=== PATIENT | male | born 1955 | race Hispanic/Latino ===

== ENCOUNTER 2020-08-12 06:33 | Day surgery (SDC) | payer OTHER ==
[2020-08-08 14:33] LABS: Absolute Lymphocytes (CBC) 2.3 K/uL (0.7-4.9); Basophils % 0.6 % (0-1.3); Hematocrit 47.5 % (39.6-49.0); Lymphocytes % 32.2 % (15.3-44.8); MPV 9.8 fL (7.6-11.3); RBC Red Blood Cell Count 5.12 M/uL (4.33-5.43)
[2020-08-08 14:43] LABS: Protime INR 0.99
--- NOTE | 2020-08-08 14:45 | RAD REPORT ---
EXAM DESCRIPTION: RAD - Chest Pa And Lat (2 Views) - 08/08/2020 2:21 pm CLINICAL HISTORY: preop Chest pain. COMPARISON: No comparisons FINDINGS: Elevated right hemidiaphragmatic leaflet is seen. The lungs are grossly clear. The heart i s normal in size. No displaced fractures.
[2020-08-08 14:49] LABS: Potassium 4.9 mmol/L (3.5-5.1)
--- OUTSIDE RECORDS SUMMARY | 2020-08-12 06:35 | XMS REPORT | Summary of Care ---
:1955 Author Organization [facility] Address [address] [place] [address] Care Team Providers Name Role Phone Gonzalo Esequiel Lilly Primary Care Provider Reason for Visit Reason Comments LAB WORK Encounter Details Date Type Department Care Team Description 06/07/2020 Telephone [facility] Endocrinology- Johny Lockhart MD LAB WORK [address] [address] [address] [place] [address] [place] [address] [phone] Allergies No Known Allergiesdocumented as of this encounter (statuses as of 06/10/2020) Medications Medication Sig Dispensed Refills Start Date End Date Status MH-2-LNC-DHA-FISH Take by 0 Ac tive OIL-FLAX-E ORAL mouth. sitaGLIPtin Take 1 tablet 90 tablet 1 12/23/2017 Act russell (JANUVIA) 100 mg by mouth tablet daily. lisinopril 20 mg Take 1 tablet 90 tablet 1 07/24/2019 Active tabletIndications: by mouth Type 2 diabetes daily. mellitus without complication, without long-term current use of insulin lancets (ONE TOUCH Use as 100 Each 07/24/2019 Active DELICA) 33 gauge directed, MiscIndications: DX:E11.9, Type 2 diabetes daily mellitus without complication, without long-term current use of insulin metFORMIN 1,000 mg TAKE 1 TABLET 180 tablet 1 07/24/2019 Active tabletIndications: BY MOUTH 2 Type 2 diabetes (TWO) TIMES mellitus without DAILY WITH complication, MEALS. without long-term current use of insulin liothyronine 5 mcg Take 1 tablet 90 tablet 1 07/24/2019 Active tabletIndications: by mouth Primary daily. hypothyroidism blood sugar USE 100 Strip 1 01/22/2020 Active diagnostic DIRECTED, (ONETOUCH VERIO) DAILY, stripIndications: DX:E11.9 Type 2 diabetes mellitus without complication, without long-term current use of insulin levothyroxine 125 TAKE 1 TABLET 90 tablet 0 05/03/2020 Active mcg BY MOUTH tabletIndications: EVERY DAY IN Primary THE MORNING hypothyroidism testosterone 20.25 APPLY 1 PUMP 75 g 0 06/07/2020 Active mg/1.25 gram (1.62 TO SHOULDER %) gel EVERY OTHER pumpIndications: DAY Male hypogonadism TESTOSTERONE 20.25 APPLY 1 PUMP 75 g 1 11/27/2019 0 Discontinued mg/1.25 gram (1.62 TO SHOULDER 20 (Reorder) %) gel EVERY OTHER pumpIndications: DAY Male hypogonadism testosterone 20.25 APPLY 1 PUMP 75 g 0 06/07/2020 0 Discontinued mg/1.25 gram (1.62 TO SHOULDER 20 (Reorder) %) gel EVERY OTHER pumpIndications: DAY Male hypogonadism documented as of this encounter (statuses as of 06/10/2020) Active Problems Not on filedocumented as of this encounter (statuses as of 06/10/2020) Immunizations Name Administration Dates Next Due TDAP 10/31/2018 documented as of this encounter Social History Tobacco Use Types Packs/Day Years Used Date Never Smoker Smokeless Tobacco: Never Used Alcohol Use Drinks/Week oz/Week Comments Yes Rare Sex Assigned at Date Recorded Not on file documented as of this encounter Last Filed Vital Signs Not on filedocumented in this encounter Miscellaneous Notes Telephone Encounter - Alka Duff - 06/10/2020 3:46 PM CDTPatient states he is having lab from his PCP and will have them sent to Dr. Pablo elephone Encounter - Carolin Mckeon LVN - 06/07/2020 2:58 PM CDTPlease assist patient with scheduling (am) lab appointment Fred Baigectronically signed by Carolin Mckeon LVN at 06/07/2020 2:59 PM CDTTelephone Encounter - Amanda Meadows - 06/07/2020 2:13 PM CDTPatient was called and a voice message was left for him to call back to schedule a lab appointment. elephone Encounter - Lolis Yates RN - 06/07/2020 9:24 AM CDT Prescription faxed to pharmacy. elephone Encounter - Arthur Villegas MBBS - 06/07/2020 9:09 AM CDTRefill for the testosterone will be faxed. Please call patient to get labs in 3-4 Weeks. Last labs more than 1 yr ago. Arthur Leo MD PGY-4 Endocrinology Fellow Telephone Encounter - Lolis Yates RN - 06/07/2020 6:54 AM CDTPlease advise, NOV: none SOLEDAD: 01/22/20 Requesting refill on TESTOSTERONE 20.25 mg/1.25 gram (1.62 %) gel pump be sent to [facility] in [place], [place]. Last testosterone lab done 03/13/19. Please send prescription if appropriate. Routing to [facility] to schedule follow up. documented in this encounter Plan of Treatment Name Type Priority Associated Diagnoses Order S chedule TESTOSTERONE, FREE AND LAB Routine Male hypogonadism Expected: TOTAL 06/27/2020, Exp ires: 06/07/2021 FREE T3 LAB Routine Primary hypothyroidism Expec sharron: 06/07/2020, Exp ires: 06/07/2021 T4 FREE LAB Routine Primary hypothyroidism Expec sharron: 06/07/2020, Exp ires: 06/07/2021 THYROID STIMULATING LAB Routine Primary hypothyroidis m Expected: HORMONE 06/07/2020, Exp ires: 06/07/2021 LIPID PANEL ([id number])(TOTAL LAB Routine Type 2 diabetes mellitus Expected: CHOLESTEROL, without complication, 2019, Expires: TRIGLYCERIDES, HDL) without long-term cur rent 06/07/2021 use of insulin COMP. METABOLIC PANEL LAB Routine Benign hypertension Expected: ([id number]) 06/07/2020, Exp ires: 06/07/2021 GLYCOSYLATED HEMOGLOBIN LAB Routine Type 2 diabetes m jose Expected: (A1C) without complication, 2019, Expires: without long-term current use of insulin Health Maintenance Due Date Last Done Comments HEPATITIS C (HCV) SCREEN 1955 PNEUMOCOCCAL 0-64 YEARS COMBINED 1961 SERIES (1 of 1 - PPSV23) Depression Screening 1967 COLON CANCER SCREENING ANNUAL 2005 FIT/FOBT COLON CANCER SCREENING FIT DNA 2005 EVERY 3 YEARS COLON CANCER SCREENING 2005 SIGMOIDOSCOPY EVERY 5 YEARS COLONOSCOPY 2005 Colorectal Cancer Screening 2005 Zoster Recombinant Vaccine 2005 (SHINGRIX) (1 of 2) EYE EXAM 06/29/2017 06/29/2016 URINE MICROALBUMIN 09/03/2018 09/03/2017, 06/29/2016 HgA1C 01/22/2020 07/24/2019, 03/13/2019, 10/10/2018, Additional history exists CREATININE (SERUM) 03/13/2020 03/13/2019, 06/20/2018, 09/03/2017, Additional history exists LDL-C 03/13/2020 03/13/2019, 06/20/2018, 10/24/2015 INFLUENZA VACCINE (#1) 2020 FOOT EXAM 01/21/2021 01/22/2020, 01/22/2020, 07/24/2019, Additional history exists DTaP,Tdap,and Td Vaccines (2 - Td) 10/31/2028 10/31/2018 documented as of this encounter Results Not on filedocumented in this encounter Visit Diagnoses Diagnosis Male hypogonadism - Primary Other testicular hypofunction Primary hypothyroidism Unspecified hypothyroidism Type 2 diabetes mellitus without complic ation, without long-term current use of insulin Benign hypertension Essential hypertension, benign documented in this encounter Insurance Payer Benefit Plan / Group Subscriber ID Effective Dates Phone Address Type AETNA AETNA HMO [id number] 2015-Present HM O documented as of this encounter
--- OUTSIDE RECORDS SUMMARY | 2020-08-12 06:35 | XMS REPORT | Summary of Care ---
:1955 Author Organization [facility] Address [address] [place] [address] Care Team Providers Name Role Phone Deisydalton Esequiel Vijaya Primary Care Provider Reason for Visit Reason Comments Refill Request Encounter Details Date Type Department Care Team Description 07/27/2020 Refill [facility] Endocrinology- Johny Lockhart MD Refill Request [address] [place] [address] [address] [place] [phone] Allergies No Known Allergiesdocumented as of this encounter (statuses as of 07/27/2020) Medications Medication Sig Dispensed Refills Start Date End Date Status PY-9-VQH-DHA-FISH Take by mouth. 0 Active OIL-FLAX-E ORAL sitaGLIPtin (JANUVIA) Take 1 tablet by 90 tablet 1 12/23/2017 Active 100 mg tablet mouth daily. lisinopril 20 mg Take 1 tablet by 90 tablet 1 07/24/2019 Active tabletIndications: Type mouth daily. 2 diabetes mellitus without complication, without long-term current use of insulin lancets (ONE TOUCH Use as directed, 100 Each 1 07/24/2019 Active DELICA) 33 gauge DX:E11.9, daily MiscIndications: Type 2 diabetes mellitus without complication, without long-term current use of insulin metFORMIN 1,000 mg TAKE 1 TABLET BY 180 tablet 1 07/24/2019 Active tabletIndications: Type MOUTH 2 (TWO) 2 diabetes mellitus TIMES DAILY WITH without complication, MEALS. without long-term current use of insulin liothyronine 5 mcg Take 1 tablet by 90 tablet 1 07/24/2019 Active tabletIndications: mouth daily. Primary hypothyroidism blood sugar diagnostic USE DIRECTED, 100 Strip 1 01/22/2020 Active (ONETOUCH VERIO) DAILY, DX:E11.9 stripIndications: Type 2 diabetes mellitus without complication, without long-term current use of insulin levothyroxine 125 mcg TAKE 1 TABLET BY 90 tablet 0 05/03/2020 Active tabletIndications: MOUTH EVERY DAY Primary hypothyroidism IN THE MORNING testosterone 20.25 APPLY 1 PUMP TO 75 g 0 06/07/2020 Active mg/1.25 gram (1.62 %) SHOULDER EVERY gel pumpIndications: OTHER DAY Male hypogonadism documented as of this encounter (statuses as of 07/27/2020) Active Problems Not on filedocumented as of this encounter (statuses as of 07/27/2020) Immunizations Name Administration Dates Next Due TDAP 10/31/2018 documented as of this encounter Social History Tobacco Use Types Packs/Day Years Used Date Never Smoker Smokeless Tobacco: Never Used Alcohol Use Drinks/Week oz/Week Comments Yes Rare Sex Assigned at Date Recorded Not on file documented as of this encounter Last Filed Vital Signs Not on filedocumented in this encounter Miscellaneous Notes Telephone Encounter - Shakira Alvarado - 07/27/2020 4:45 PM CDTCalled patient to schedule appts patient states he had labs done at his PCP office and will have them faxed to Dr. Sagastume. He did schedule an appointment for 08/[address] Sagastume Telephone Encounter - Pearl Pelayo DO - 07/27/2020 4:08 PM CDTNeed lab work prior. Hasn't had labs in a year. Also on liothyronine. elephone Encounter - Pearl Pelayo DO - 07/27/2020 4:00 PM CDTNo recent lab work. Also patient needs to make an apmt the next available with dr sagastume as soon as available. I tried to call patient no answer Is patient also on liothyronine? Telephone Encounter - Lolis Yates RN - 07/27/2020 3:15 PM CDTPvictoria hannah, NOV: none SOLEDAD: 01/22/20 Requesting refill on Levothyroxine. Last thyroid labs done 03/13/19. Routing to [facility] to schedule follow up and lab appointment. documented in this encounter Plan of Treatment Date Type Specialty Care Team Description 08/26/2020 Office Visit Endocrinology Diabetes & Clifford y, Johny Mares MD Metabolism [address] [place] [address] [phone] Health Maintenance Due Date Last Done Comments HEPATITIS C (HCV) SCREEN 1955 Depression Screening 1967 COLON CANCER SCREENING ANNUAL [...] 03/13/2019, 06/20/2018, 10/24/2015 INFLUENZA VACCINE (#1) 2020 Medicare Wellness Visit 2020 PNEUMOCOCCAL VACCINES 65+ (1 of 1 2020 - PPSV23) FOOT EXAM 01/21/2021 01/22/2020, 01/22/2020, 07/24/2019, Additional history exists DTaP,Tdap,and Td Vaccines (2 - Td) 10/31/2028 10/31/2018 documented as of this encounter Results Not on filedocumented in this encounter Visit Diagnoses Diagnosis Primary hypothyroidism Unspecified hypothyroidism documented in this encounter Insurance Payer Benefit Plan / Group Subscriber ID Effective Dates Phone Address Type AETNA AETNA O [id number] 2015-Present O documented as of this encounter
--- OUTSIDE RECORDS SUMMARY | 2020-08-12 06:35 | XMS REPORT | Continuity of Care Document ---
:1955 Author Organization [facility] t Address [address] [place] [address] Care Team Providers Name Role Phone Montez HILLMAN, Tyshawn Primary Care Physician Tanika HILLMAN, Johny Mares Attending Clinician Rommel Underwood MD, Bonilla Attending Clinician Payers Payer Name Policy Type Policy Effective Date Expiration Date Sour ce Number MEDICAREMEDICARE PART [id number] 2020 [place] Wtaers AND 00:00:00 Confucianist [id number] [place] [place] This patient has no known problems. Allergies, Adverse Reactions, Alerts This patient has no known allergies or adverse reactions. Social History Social Habit Start Date Stop Date Quantity Comments Source Sex Assigned At M Ashley Zapien Exposure to SARS-CoV-2 Not sure [place] Zapien (event) Medications This patient has no known medications. Procedures Procedure Date / Time Performed Performing Clinician Sourc e XR THORACIC SPINE 2 VW 2020-05-26 13:42:44 Garth Banks Bonilla XR CERVICAL SPINE 2020-05-26 13:42:05 Garth Banks COMPLETE Bonilla Plan of Care Planned Activity Planned Date Details Comments Source Future Scheduled 2020 65+ PNEUMOCOCCAL Justo Zapien Test 00:00:00 VACCINE (1 of 1 - PPSV23) [code = 65+ PNEUMOCOCCAL VACCINE (1 of 1 - PPSV23)] Future Scheduled 2020-06-04 INFLUENZA VACCINE [place] Confucianist Test 00:00:00 [code = INFLUENZA VACCINE] Future Scheduled 2005 COLONOSCOPY SCREENING [place] smith Confucianist Test 00:00:00 [code = COLONOSCOPY SCREENING] Future Scheduled 2005 SHINGLES VACCINES (#1) Suzan martin Confucianist Test 00:00:00 [code = SHINGLES VACCINES (#1)] Encounters Start End Encounter Admission Attending Care Care Encounter Source Date/Time Date/Time Type Type Clinicians Facility Department ID 2020-07-27 2020-07-27 [facility] [id number] 00:00:00 00:00:00 Johny Galindo [id number] [place] [id number] Angieio [id number] [address] 2020-05-26 2020-05-26 Outpatient [facility] [id number] [address] 00:00:00 00:00:00 MARCOS, [address] 2020-05-26 2020-05-26 Outpatient [facility] [id number] 00:00:00 00:00:00 MARCOS, [address] 2020-05-26 2020-05-26 Outpatient [facility] [id number] [address] 00:00:00 00:00:00 MARCOS [address] 2020-05-26 2020-05-26 Outpatient [facility] [id number] [address] 00:00:00 00:00:00 MARCOS [address] Results This patient has no known results.
--- OUTSIDE RECORDS SUMMARY | 2020-08-12 06:35 | XMS REPORT | Summary of Care ---
:1955 Author Organization [facility] Address [address] [place] [address] Care Team Providers Name Role Phone Deisydalton Esequiel Vijaya Primary Care Provider Reason for Visit Reason Comments Refill Request Encounter Details Date Type Department Care Team Description 07/27/2020 Refill [facility] Endocrinology- Johny Lockhart MD Refill Request [place] [address] [address] [place] [address] [phone] Allergies No Known Allergiesdocumented as of this encounter (statuses as of 07/27/2020) Medications Medication Sig Dispensed Refills Start Date End Date Status NR-0-WNW-DHA-FISH Take by mouth. 0 Active OIL-FLAX-E ORAL [...] this encounter Miscellaneous Notes Telephone Encounter - Pearl Pelayo DO - 07/27/2020 4:08 PM CDTNeed lab work prior. Hasn't had labs in a year. Also on liothyronine. elephone Encounter - Pearl Pelayo DO - 07/27/2020 4:00 PM CDTNo recent lab work. Also patient needs to make an apmt the next available with dr weems as soon as available. I tried to call patient no answer Is patient also on liothyronine? Telephone Encounter - Lolis Yates RN - 07/27/2020 3:15 PM CDTPlease advise, NOV: none SOLEDAD: 01/22/20 Requesting refill on Levothyroxine. Last thyroid labs done 03/13/19. Routing to [facility] to schedule follow up and lab appointment. documented in this encounter Plan of Treatment Health Maintenance Due Date Last Done Comments [...] Dates Phone Address Type AETNA AETNA HMO [id number] 2015-Present HM O documented as of this encounter
--- OUTSIDE RECORDS SUMMARY | 2020-08-12 06:35 | XMS REPORT | Clinical Summary ---
:1955 Author Organization [facility] Address [address] [place] [address] Care Team Providers Name Role Phone Tyshawn Herrmann MD Primary Care Provider Allergies Not on File Medications Not on file Active Problems Not on file Encounters Date Type Specialty Care Team Description 07/19/2020 Travel 05/30/2020 Orders Only Orthopedic Surgery Garth Banks Cerv ical pain (Primary Dx); MD Bonilla Acute thoracic back pain, unspecified back pain laterality 05/26/2020 Office Visit Orthopedic Surgery Garth Banks Uppe r back pain (Primary Dx); MD Bonilla Low back pain, unspecified back pain laterality, unspecified chronicity, unspecified whether sciatica present; Neck pain 05/26/2020 Travel 05/23/2020 Travel after 08/12/2019 Social History Tobacco Use Types Packs/Day Years Used Date Never Assessed Sex Assigned at Date Recorded Male 05/26/2020 9:00 AM CDT COVID-19 Exposure Response Date Recorded In the last month, have you been in contact with No / Unsure 07/19/2020 9:05 AM CDT someone who was confirmed or suspected to have Coronavirus / COVID-19? Last Filed Vital Signs Not on file Plan of Treatment Health Maintenance Due Date Last Done Comments COLONOSCOPY SCREENING 2005 SHINGLES VACCINES (#1) 2005 INFLUENZA VACCINE 06/04/2020 65+ PNEUMOCOCCAL VACCINE (1 of 1 - PPSV23) 2020 Procedures Procedure Name Priority Date/Time Associated Diagnosis Comme nts XR THORACIC SPINE 2 Routine 05/26/2020 1:42 PM Upper back conrad n Results for this VW CDT procedure are i n the results section. XR CERVICAL SPINE Routine 05/26/2020 1:42 PM Neck pain Res ults for this COMPLETE CDT procedure are i n the results section. after 08/12/2019 Results XR Thoracic Spine 2 Vw (05/26/2020 1:42 PM CDT) Specimen Narrative Performed At This result has an attachment that is no t available. Cervical spine multiple views. HM RADIANT C3-4 retrolisthesis minimally mobile to flexion-extens ion maneuvers No advanced disc degeneration or disc space collapse n oted. No fractures or bony erosions. Performing Organization Address [facility] Phon e Number HM RADIANT [address] [place] [address] XR Cervical Spine Complete (05/26/2020 1:42 PM CDT) Specimen Narrative Performed At This result has an attachment that is no t available. X-ray cervical spine multiple views, C3-4 2 mm retrolisthesis minimally HM RADIANT mobile on dynamic x-rays No fracture bone erosions No significant disc degeneration and disc space collap se. 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
[2020-08-12] MEDS ORDERED: LIDOCAINE 1% 20 ML MDV ONE (06:48)
[2020-08-12] MEDS ORDERED: HEPA 1000U/500MLS 1,000 UNIT/500 ML BAG IV ONE (06:48)
[2020-08-12] MEDS ORDERED: NA CHLORIDE 0.9% 500 ML ONE (07:01)
[2020-08-12] MEDS ORDERED: MIDAZOLAM HCL 2 MG/2 ML INJ ONE ×2 (07:19→07:48)
[2020-08-12] MEDS ORDERED: FENTANYL CITR 100 MCG/2 ML ONE (07:19)
--- NOTE | 2020-08-12 08:24 | OP ---
Date of Procedure: 08/12/2020 Surgeon: Loc Carrasquillo MD Straight Knife Cutter Machine: Sheldon James Patient admitted as an outpatient on 08/12/2020, to the laboratory manager as an outpatient. Reason For Admission: Selective bilateral carotid angiogram. Indication: Syncope and collapse and positive carotid Doppler. Procedure In Detail: The patient was brought to the laboratory manager, prepped and draped in the routine ster ile fashion. Given Versed for sedation. A 6-Belizean sheath introduced in the right common femoral ar boone successfully after 10 cc of xylocaine and using the Seldinger technique. Angiography there was normal. Angio-Seal was used to close the case. A JR4 catheter was used to selectively inject the ri ght common carotid and the left common carotid. He was found to have normal bilateral common carotid artery. He had moderate stenosis in the bilateral external carotid arteries. The left internal car otid had a 30% stenosis that was tortuous. The right internal carotid artery had an 80% proximal int ernal carotid artery stenosis and that was tortuous as well. 6-Belizean catheters and sheath were used . No complications. Blood Loss: 5 cc. Postoperative Diagnosis: Cardiovascular disease, severe, right internal carotid artery stenosis. Plan: For the right carotid endarterectomy as an outpatient in the [place]. Patient will remain in the hospital now for about 2 hours before he goes home. I will make arrangements for followup as an outpatient in the near future. Anesthesia: Total conscious sedation was 30 minutes. TERESA/KM Voice ID: [id number] Report ID: [id number]
[2020-08-12 08:30] VITALS: O2SAT 97
[2020-08-12 08:34] VITALS: TEMP 97
[2020-08-12 10:31] VITALS: BP 147/102
== END 2020-08-12 10:11 | disposition home or self-care (01) ==
LOC: CCL 06:33
DX: I65.23 Occlusion and stenosis of bilateral carotid arteries (principal); I10 Essential (primary) hypertension; E11.9 Type 2 diabetes mellitus without complications; Z20.828 Contact with and (suspected) exposure to other viral communicable diseases
CPT/HCPCS: 93005; 85025; 80048; 36415; 85610; 82947; 85730; 71046; 36222; U0002; C1893; C1760; J2250 ×2; J3010; J7040; J1644

== ENCOUNTER 2020-08-27 15:45 | Emergency (ER) | payer OTHER ==
--- OUTSIDE RECORDS SUMMARY | 2020-08-27 15:47 | XMS REPORT | Clinical Summary ---
:1955 Author Organization [facility] Address [address] [place] [address] Care Team Providers Name Role Phone Tyshawn [...] Neck pain 05/26/2020 Travel 05/23/2020 Travel after 08/27/2019 Social History Tobacco Use Types Packs/Day Years Used Date Never Assessed Sex Assigned at Date Recorded Male 05/26/2020 9:00 AM CDT Last Filed Vital Signs Not on file [...] are i n the results section. after 08/27/2019 Results XR Thoracic Spine 2 Vw (05/26/2020 1:42 PM CDT) Specimen Narrative Performed At This result has an attachment that is no t available. Cervical spine multiple views. HM RADIANT C3-4 retrolisthesis minimally mobile to flexion-extens ion maneuvers No advanced disc degeneration or disc space collapse n oted. No fractures or bony erosions. Performing Organization Address [facility] Code Phon e Number HM RADIANT [address] [place] [address] XR Cervical Spine Complete (05/26/2020 1:42 PM CDT) Specimen Narrative Performed At This result has an attachment that is no t available. X-ray cervical spine multiple views, C3-4 2 mm retrolisthesis minimally HM RADIANT mobile on dynamic x-rays No fracture bone erosions No significant disc degeneration and disc space collap se. 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
--- OUTSIDE RECORDS SUMMARY | 2020-08-27 15:48 | XMS REPORT | Summary of Care ---
:1955 Author Organization [facility] Address [address] [place] [address] Care Team Providers Name Role Phone Deisydalton Esequiel Vijaay Primary Care Provider Reason for Visit Reason Comments Refill Request Encounter Details Date Type Department Care Team Description 07/27/2020 Refill [facility] Endocrinology- Johny Lockhart MD Refill Request [place] [address] [address] [place] [phone] Allergies No Known Allergiesdocumented as of this encounter (statuses as of 07/27/2020) Medications Medication Sig Dispensed Refills Start Date End Date Status QX-6-NFW-DHA-FISH Take by mouth. 0 Active OIL-FLAX-E ORAL [...] Dates Phone Address Type AETNA AETNA HMO [id number] 2015-Present HM O documented as of this encounter
--- OUTSIDE RECORDS SUMMARY | 2020-08-27 15:48 | XMS REPORT | Summary of Care ---
:1955 Author Organization [facility] Address [address] [place] [id number] Care Team Providers Name Role Phone Gonzalo Esequiel Lilly Primary Care Provider Reason for Visit Reason Comments LAB WORK Encounter Details Date Type Department Care Team Description 06/07/2020 Telephone [facility] Endocrinology- Johny Lockhart MD LAB WORK [address] [address] [address] [place] [address] [place] [address] [phone] Allergies No Known Allergiesdocumented as of this encounter (statuses as of 06/10/2020) Medications Medication Sig Dispensed Refills Start Date End Date Status [id number] Take by 0 Ac tive OIL-FLAX-E ORAL [...] (1.62 %) gel pump be sent to [facility] in [place], [place]. Last testosterone lab done 03/13/19. Please [...] HORMONE 06/07/2020, Exp ires: 06/07/2021 LIPID PANEL (73149)(TOTAL LAB Routine Type 2 diabetes mellitus Expected: CHOLESTEROL, without complication, 2019, Expires: TRIGLYCERIDES, HDL) without long-term cur rent 06/07/2021 use of insulin COMP. METABOLIC PANEL LAB Routine Benign hypertension Expected: ([id number]) 06/07/2020, Exp ires: 06/07/2021 GLYCOSYLATED HEMOGLOBIN LAB [...] Dates Phone Address Type [employer]ET[employer] AETNA HMO [phone] 2015-Present HM O documented as of this encounter
--- OUTSIDE RECORDS SUMMARY | 2020-08-27 15:48 | XMS REPORT | Clinical Summary ---
:1955 Author Organization [facility] Address [address] [place] [address] Care Team Providers Name Role Phone Tyshawn Herrmann Primary Care Provider Allergies No Known Allergies Medications Medication Sig Dispensed Refills Start End Date Status Date atorvastatin Take 40 mg by 0 Act russell (LIPITOR) 40 MG mouth daily. 0 tablet cholecalciferol Take 5,000 0 Act russell (VITAMIN D3) 25 mcg Units by mouth (1,000 unit) tablet daily . levothyroxine Take 125 mcg 0 Act russell (SYNTHROID, by mouth 0 LEVOTHROID) 125 MCG daily. tablet olmesartan (BENICAR) Take 40 mg by 0 Active 40 MG tablet mouth daily. 0 metFORMIN Take 1,000 mg 0 Active (GLUCOPHAGE) 1000 MG by mouth 2 0 tablet (two) times daily with breakfast and dinner. testosterone 20.25 APPLY 1 PUMP 0 Active mg/1.25 gram (1.62 TO SHOULDER 0 %) GlPm EVERY OTHER DAY ascorbic acid, Take 1,000 mg 0 A ctive vitamin C, (VITAMIN by mouth C) 1000 MG tablet daily. vitamin E 400 UNIT Take 400 Units 0 Active capsule by mouth daily. MAGNESIUM ORAL Take by mouth 0 A ctive daily. clopidogreL (PLAVIX) Take 75 mg by 0 Active 75 mg tablet mouth daily 0 Took 150mg ..20. BABY ASPIRIN ORAL Take 81 mg by 0 Active mouth daily. OMEGA-3 FATTY Take 1 capsule 0 A ctive ACIDS-FISH OIL ORAL by mouth 2 (two) times daily. omega-3 fatty Take 2 g by 0 08/22/20 Disc ontinued acids-fish oil mouth 2 (two) 20 ( Duplicate 340-1,000 mg Cap per times daily. Therapy) capsule Active Problems Problem Noted Date Carotid stenosis, right 08/24/2020 Dissection of left common iliac artery 08/24/2020 Primary squamous cell carcinoma of head and neck 08/21 History of lymph node excision 08/21/2020 DM2 (diabetes mellitus, type 2) 08/21/2020 Radiation therapy complication 08/21/2020 Carotid artery stenosis, symptomatic, right s/p 10x31 Wallstent 08/24/2020 08/21/2020 PVD (peripheral vascular disease) 08/21/2020 Orthostatic hypotension 08/21/2020 Encounters Date Type Specialty Care Team Description 08/26/2020 Outside Orders Central Scheduling Kelsie Ríos MD (Primary Dx) 08/24/2020 Surgery Sonal, STENT / CAROTID [facility] Doron Stanford, - IP PROC ONLY* * 08/24/2020 - Hospital Encounter Sonal, 08/26/2020 Doron Stanford MD 08/22/2020 Hospital Encounter Radiology Sonal, Stenosis of carotid Doron Stanford artery, unspeccristo may MD laterality 08/22/2020 Hospital Encounter Radiology Sonal, Stenosis of carotid Doron Stanford artery, unspeci yadira HILLMAN laterality 08/22/2020 Clinical Support Cardiology Sonal, Pre-op test MD Lebron Zuniga Taiwo, RN 08/22/2020 Travel 08/18/2020 Outside Orders Central Scheduling Sonal, Stenosi s of carotid Doron Stanford artery, sam may MD laterality (Imani allegra Dx) 08/16/2020 Office Visit Cardiology Aurelio, Stenosis of angélica Gaviria carotid artery MD Jayant (Primary Dx) 08/16/2020 Travel after 08/27/2019 Family History Medical History Relation Name Comments Stroke Father Cancer Mother bone cancer Relation Name Status Comments Father (Age 50) Mother Social History Tobacco Use Types Packs/Day Years Used Date Never Smoker Smokeless Tobacco: Never Used Alcohol Use Drinks/Week oz/Week Comments Yes rarely beer Alcohol Habits Answer Date Recorded How often do you have a drink containing alcohol? Never 08/16/2020 How many drinks containing alcohol do you have on a typical Not asked day when you are drinking? How often do you have six or more drinks on one occasion? No t asked Sex Assigned at Date Recorded Not on file COVID-19 Exposure Response Date Recorded In the last month, have you been in contact with No / Unsure 08/22/2020 12:44 PM CDT someone who was confirmed or suspected to have Coronavirus / COVID-19? Last Filed Vital Signs Vital Sign Reading Time Taken Comments Blood Pressure 106/67 08/26/2020 7:35 AM CDT Pulse 63 08/26/2020 7:35 AM CDT Temperature 36.8 C (98.2 F) 08/26/2020 7:35 AM CDT Respiratory Rate 18 08/26/2020 7:35 AM CDT Oxygen Saturation 98% 08/26/2020 7:35 AM CDT Inhaled Oxygen Concentration - - Weight 106.6 kg (235 lb) 08/25/2020 7:25 AM CDT Height 177.8 cm (5' 10") 08/24/2020 7:48 AM CDT Body Mass Index 33.72 08/24/2020 7:48 AM CDT Plan of Treatment Health Maintenance Due Date Last Done Comments COLON CANCER SCREENING COLONOSCOPY 1955 DIABETIC EYE EXAM 1965 DIABETIC FOOT EXAM 1965 URINE MICROALBUMIN 1965 LIPID PANEL 1990 INFLUENZA VACCINE (#1) 2020 Medicare IPPE (WELCOME TO MEDICARE) 07/05/2020 PNEUMOCOCCAL 65+ YRS (1 of 1 - [id number]) 2020 HEMOGLOBIN A1C 08/21/2020 Implants Implanted Type Area Activated Sludge Attendant Device Identifier Shelf Model / Expiration Serial / Date Lot Stent Rx Wstnt [id number] - [id number] IMPLANTS B [place] [id number] 03/08/2023 [id number] / Implanted: Qty: 1 on 08/24/2020 by Doron Diane MD at [facility] SCI:PERIPHERAL / INTERV [id number] Description:BRIANDA Procedures Procedure Name Priority Date/Time Associated Comments Diagnosis POCT-GLUCOSE METER Routine 08/26/2020 7:22 Resul ts for this AM CDT procedure are i n the results section. POCT-GLUCOSE METER Routine 08/25/2020 9:44 Resul ts for this PM CDT procedure are i n the results section. EEG AWAKE AND DROWSY Routine 08/25/2020 5:03 Res ults for this PM CDT procedure are i n the results section. POCT-GLUCOSE METER Routine 08/25/2020 3:19 Resul ts for this PM CDT procedure are i n the results section. PROTHROMBIN TIME/INR Routine 08/25/2020 10:27 Res ults for this AM CDT procedure are i n the results section. APTT Routine 08/25/2020 10:27 Results for this AM CDT procedure are i n the results section. POCT-GLUCOSE Routine 08/25/2020 10:15 Results for this AM CDT procedure are i n the results section. POCT-CALCIUM IONIZED Routine 08/25/2020 10:15 Res ults for this AM CDT procedure are i n the results section. POCT-HEMATOCRIT Routine 08/25/2020 10:15 Results for this AM CDT procedure are i n the results section. POCT-HEMOGLOBIN Routine 08/25/2020 10:15 Results for this AM CDT procedure are i n the results section. POCT-POTASSIUM Routine 08/25/2020 10:15 Results f or this AM CDT procedure are i n the results section. POCT-SODIUM Routine 08/25/2020 10:15 Results for this AM CDT procedure are i n the results section. POCT-BLOOD GASES, Routine 08/25/2020 10:15 Result s for this VENOUS AM CDT procedure are i n the results section. CT BRAIN/STROKE TEST STAT 08/25/2020 9:49 Res ults for this DESIGN AM CDT procedure are i n the results section. POCT-GLUCOSE METER Routine 08/25/2020 8:57 Resul ts for this AM CDT procedure are i n the results section. CBC (HEMOGRAM ONLY) Routine 08/25/2020 5:20 Resu lts for this AM CDT procedure are i n the results section. BASIC METABOLIC PANEL Routine 08/25/2020 5:20 Re sults for this (7) AM CDT procedure are i n the results section. POCT-ACT Routine 08/24/2020 4:53 Results for this PM CDT procedure are i n the results section. POCT-ACT Routine 08/24/2020 3:51 Results for this PM CDT procedure are i n the results section. POCT-ACT Routine 08/24/2020 1:43 Results for this PM CDT procedure are i n the results section. POCT-ACT Routine 08/24/2020 1:24 Results for this PM CDT procedure are i n the results section. POCT-ACT Routine 08/24/2020 1:06 Results for this PM CDT procedure are i n the results section. STENT / CAROTID MCR 08/24/2020 11:21 Stenosis of rig ht - IP PROC ONLY AM CDT carotid artery Case Notes (2)CASE 6TOP PLATELET AGGREGATION: Routine 08/24/2020 9:36 AM Results for this FUNCTION SCREEN CDT procedure ar e in the results section. MRA HEAD WITH & Routine 08/22/2020 4:53 PM Stenosis of caroti d Results for this WITHOUT IV CONTRAST CDT artery, unspecified p rocedure are in laterality the results section. MRA NECK WITH & Routine 08/22/2020 4:53 PM Stenosis of caroti d Results for this WITHOUT CONTRAST CDT artery, unspecified proc edure are in laterality the results section. CREATININE Routine 08/22/2020 1:00 PM Results for this CDT procedure are i n the results section. BUN Routine 08/22/2020 1:00 PM Results for this CDT procedure are i n the results section. SARS-COV2/RT-PCR Routine 08/22/2020 12:49 PM Resu lts for this ([facility] & REF LABS) CDT procedure are in the results section. after 08/27/2019 Results POC-Glucose meter (08/26/2020 7:22 AM CDT)Only the most recent of4 results within the time period is included. POC-Glucose Meter 186 (H) 70 - 110 mg/dL [facility] Comment: [facility] MED[facility] : TESTED AT [facility] [address] [facility] [facility], [address] CENTER : Mines Inspector/Mill Turner ID = [id number] for BLU MEYERS Specimen Blood Performing Organization Address City/State/Zipcode Phone Number [address] [address] CENTER EEG AWAKE AND DROWSY (08/25/2020 5:03 PM CDT) Specimen Narrative Performed At EEG report [facility] GE RIS DATE OF TEST: 08/25/20 DATE OF REPORT: 08/25/20 ACC: [id number] Start time: 1642 Stop time: 1703 ICD-10: R41.82 CPT: 66760 HISTORY: 65yo R-handed male w/ PMH of HT N, HLD, DM2, SCC of head & neck, hypothyroidism, HUNTER, PVD, orthosta tic hypotension, h/o right neck lymph node dissection, chronic left common iliac artery dissection, & critical right ICA stenosi s likely 2/2 radiation therapy s/p cerebral angio w/ right ICA stenting on 08/24 c/b bilateral groin hematomas who presents a s stroke alert for symptoms of confusion & mild aphasia. Current sym ptoms include cognitive impairment & loss of vision, affecting p rimarily the L-eye, symptoms have improved. MEDICATIONS: aspirin, atorvastin, clopid ogrel, levothyroxine TECHNICAL SUMMARY: This is a digital video EEG recorded wit h 32 input channels reviewed with bipolar and referential montages us ing the modified combinatorial system nomenclature. DESCRIPTION OF RECORD: During the maximally alert state a 9-10 Hz posterior dominant rhythm was seen that was asymmetric, better see n over the left hemisphere, reactive to eye opening and well regulat ed. More anteriorly, low voltage frontocentral beta predominated. Continuous 2-3 Hz slowing was seen over the right hemisphere, maxi mal right temporal region, at times with superimposed theta frequencie s. Drowsiness was characterized by alpha attenuation and i ncreased frontocentral theta. Stage 2 sleep structures were not seen. HV: Hyperventilation was not performed. PHOTIC STIMULATION: Flash stimulation wa s done from 1-30 Hz; no photic driving was seen; photoparoxysmal responses were absent. IMPRESSION: Abnormal Awake and Drowsy EE G Continuous slow, lateralized right hemis phere CLINICAL CORRELATION: This EEG is signif icant for right hemispheric focal dysfunction. No epileptiform disch arges or electrographic seizures were seen. An EEG without epile ptiform discharges does not exclude the possibility of epilepsy. I f the clinical suspicion of epilepsy remains, consider additional EE G recordings. Olivier Jamison MD, MS Clinical Neurophysiology/Epilepsy Attend ing Procedure Note Interface, External Ris In - 08/25/2020 6:34 PM CDT EEG report [facility] DATE OF TEST: 08/25/20 DATE OF REPORT: 08/25/20 ACC: [id number] Start time: 1642 Stop time: 1703 ICD-10: R41.82 CPT: 59664 HISTORY: 65yo R-handed male w/ PMH of HT N, HLD, DM2, SCC of head & neck, hypothyroidism, HUNTER, PVD, orthosta tic hypotension, h/o right neck lymph node dissection, chronic left common iliac artery dissection, & critical right ICA stenosi s likely 2/2 radiation therapy s/p cerebral angio w/ right ICA stenting on 08/24 c/b bilateral groin hematomas who presents a s stroke alert for symptoms of confusion & mild aphasia. Current sym ptoms include cognitive impairment & loss of vision, affecting p rimarily the L-eye, symptoms have improved. MEDICATIONS: aspirin, atorvastin, clopid ogrel, levothyroxine TECHNICAL SUMMARY: This is a digital video EEG recorded wit h 32 input channels reviewed with bipolar and referential montages us ing the modified combinatorial system nomenclature. DESCRIPTION OF RECORD: During the maximally alert state a 9-10 Hz posterior dominant rhythm was seen that was asymmetric, better see n over the left hemisphere, reactive to eye opening and well regulat ed. More anteriorly, low voltage frontocentral beta predominated. Continuous 2-3 Hz slowing was seen over the right hemisphere, maxi mal right temporal region, at times with superimposed theta frequencie s. Drowsiness was characterized by alpha attenuation and i ncreased frontocentral theta. Stage 2 sleep structures were not seen. HV: Hyperventilation was not performed. PHOTIC STIMULATION: Flash stimulation wa s done from 1-30 Hz; no photic driving was seen; photoparoxysmal responses were absent. IMPRESSION: Abnormal Awake and Drowsy EE G Continuous slow, lateralized right hemis phere CLINICAL CORRELATION: This EEG is signif icant for right hemispheric focal dysfunction. No epileptiform disch arges or electrographic seizures were seen. An EEG without epile ptiform discharges does not exclude the possibility of epilepsy. If the clinical suspicion of epilepsy remains, consider additional EE G recordings. Olivier Jamison MD, MS Clinical Neurophysiology/Epilepsy Attend ing Performing Organization Address City/[facility]/Zipcode Phone Number GE RIS aPTT (08/25/2020 10:27 AM CDT) Pathologist Sig nature PTT 27.6 22.5 - 36.0 seconds [facility] Specimen Blood Performing Organization Address [facility] Phone Number [address] [address] CENTER Prothrombin time/INR (08/25/2020 10:27 AM CDT) Pathologist Sig nature Protime 13.9 11.9 - 14.2 seconds [facility] INR 1.10 <=5.90 [facility] Specimen Blood Narrative Performed At Effective 04/01/2019: PT Reference Range [facility] Change New: 11.9-14.2 Previous: 11.7-14.7 RECOMMENDED COUMADIN/WARFARIN INR THERAPY RANGES STANDARD DOSE: 2.0-3.0 Includes: PROPHYLAXIS for venous thrombosis, systemic embolization; TREATMENT for venous thrombosis and/or pulmonary embolus. HIGH RISK: Target INR is 2.5-3.5 for patients wiht mechanical heart valves. Performing Organization Address [facility] Phone Number [address] [phone] [place] POCT-HEMATOCRIT (08/25/2020 10:15 AM CDT) Pathologist [place] nature POC-Hematocrit 38 (L)Comment: : 40 - 50 % [facility] Mines Inspector/Technicia [facility] n ID = [id number] for SARA CAZARES Specimen Blood Performing Organization Address [facility]/Zipcode Phone Number [address] [address] CENTER POCT-HEMOGLOBIN (08/25/2020 10:15 AM CDT) POC-Hemoglobin 12.9 (L) 13.0 - 16.8 [facility] Comment: g/dL [facility] MEDICAL : TESTED AT [address], [address] CENTER : Mines Inspector/Mill Turner ID = [id number] for IBAY, SARA Specimen Blood Performing Organization Address City/[facility]/Zipcode Phone Number [address] [address] [place] POCT-GLUCOSE (08/25/2020 10:15 AM CDT) Pathologist Sig nature POC-Glucose 249 (H) 70 - 110 mg/dL [facility] Comment: [facility] MEDICAL : TESTED AT [address], [address] CENTER : Mines Inspector/Mill Turner ID = [id number] for IBAY, SARA Specimen Blood Performing Organization Address City/[facility]/Zipcode Phone Number [address] [address] [place] POC-Sodium (08/25/2020 10:15 AM CDT) Pathologist [place] nature POC-Sodium 134 (L) 135 - 148 meq/L [facility] Comment: [facility] MEDICAL : TESTED AT [address], [address] CENTER : Mines Inspector/Mill Turner ID = [id number] for IBAY, SARA Specimen Blood Performing Organization Address [facility]/Zipcode Phone Number [address] [address] [place] POC-Potassium (08/25/2020 10:15 AM CDT) [facility] POC-Potassium 4.1 3.6 - 5.5 meq/L [facility] Comment: [facility] MEDICAL : TESTED AT [address], [address] CENTER : Mines Inspector/Mill Turner ID = [id number] for IBAY, SARA Specimen Blood Performing Organization Address City/[facility]/Zipcode Phone Number [address] [address] [place] POC-Calcium ionized (08/25/2020 10:15 AM CDT) [facility] POC-Calcium 1.17 1.12 - 1.27 [facility] Ionized Comment: mmol/L [facility] MEDICAL : TESTED AT [address], [address] CENTER : Mines Inspector/Mill Turner ID = [id number] for SARA CAZARES Specimen Blood Performing Organization Address [facility]/Zipcode Phone Number [address] [phone] [place] POC-Blood gases, venous (08/25/2020 10:15 AM CDT) [facility] Tem. Celsius-POC [facility] FIO2-POC [facility] pH, Venous-POC 7.396Comment: : 7.320 - 7.420 [facility] TESTED AT [address], [address] PCO2, Venous-POC 41.7 41.0 - 51.0 mm [facility] PO2, Venous-POC 41.0 (H) 25.0 - 40.0 mm [facility] SO2, Venous-POC 76.0 (H) 40.0 - 70.0 % [facility] HCO3, Venous-POC 25.6 21.0 - 29.0 [facility] meq/L [facility] BE, Venous-POC 1.0Comment: : -2.0 - 3.0 [facility] Mines Inspector/Technic meq/L [facility] kenny ID = [id number] CENTER for SARA CAZARES Specimen Blood Performing Organization Address City/[facility]/Zipcode Phone Number [address] [address] [place] [address] brain/stroke test design (08/25/2020 9:49 AM CDT) Specimen Narrative Performed At FINAL REPORT [employer] [facility] CT Head without contrast CLINICAL HISTORY: Confusion/delirium, al tered LOC, unexplained TECHNIQUE: Contiguous axial images throu gh the head without contrast. This exam was performed according to the departmental dose optimization program which includes auto mated exposure control, adjustment of the mA and/or kV according to the patient size, and/or use of an iterative reconstruction techn ique. COMPARISON: None FINDINGS: There is no CT evidence of acute infarct or intracranial hemorrhage. There is mild generalized parenchymal vo lume loss without hydrocephalus, midline shift, or apparen t mass effect. There are no extra-axial fluid collections. The skull is intact. The paranasal sinuses are well-aerated. IMPRESSION: There is no CT evidence of acute infarct or intracranial hemorrhage. The findings were discussed with the [facility] neurologist at 9:55 AM. Signed: Chika Escobedo MD Report Verified Date/Time: 08/25/2020 09:56:18 Reading Location: [address] Room Procedure Note Interface, External Ris In - 08/25/2020 9:58 AM CDT FINAL REPORT CT Head without contrast CLINICAL HISTORY: Confusion/delirium, al tered LOC, unexplained TECHNIQUE: Contiguous axial images throu gh the head without contrast. This exam was performed according to the departmental dose optimization program which includes auto mated exposure control, adjustment of the mA and/or kV according to the patient size, and/or use of an iterative reconstruction techn ique. COMPARISON: None FINDINGS: There is no CT evidence of acute infarct or intracranial hemorrhage. There is mild generalized parenchymal vo lume loss without hydrocephalus, midline shift, or apparen t mass effect. There are no extra-axial fluid collections. The skull is intact. The paranasal sinuses are well-aerated. IMPRESSION: There is no CT evidence of acute infarct or intracranial hemorrhage. The findings were discussed with the [facility] neurologist at 9:55 AM. Signed: Chika Escobedo MD Report Verified Date/Time: 08/25/2020 0 9:56:18 Reading Location: [address] Room Performing Organization Address City/State/Zipcode Phone Number [facility] CBC (Hemogram only) (08/25/2020 5:20 AM CDT) [facility] WBC 10.3 3.5 - 10.5 K/L [facility] RBC 4.26 (L) 4.63 - 6.08 M/L [facility] Hemoglobin 13.1 (L) 13.7 - 17.5 GM/DL [facility] Hematocrit 39.3 (L) 40.1 - 51.0 % [facility] MCV 92.3 (H) 79.0 - 92.2 fL [facility] MCH 30.8 25.7 - 32.2 pg [facility] MCHC 33.3 32.3 - 36.5 GM/DL [facility] RDW 13.2 11.6 - 14.4 % [facility] Platelets 181 150 - 450 K/CU MM [facility] MPV 10.9 9.4 - 12.4 fL [facility] nRBC 0 0 - 0 /100 WBC [facility] Specimen Blood - Entire right upper arm (body str ucture) Performing Organization Address City/State/Zipcode Phone Number [facility] [address] [place] [address] CENTER Basic metabolic panel (08/25/2020 5:20 AM CDT) Sodium 138 136 - 145 meq/L [facility] Potassium 5.0 3.5 - 5.1 meq/L [facility] Chloride 102 98 - 107 meq/L [facility] CO2 28 22 - 29 meq/L [facility] BUN 13 7 - 21 mg/dL [facility] Creatinine 0.88 0.57 - 1.25 [facility] mg/dL [facility] Glucose 193 (H) 70 - 105 mg/dL [facility] Calcium 8.4 8.4 - 10.2 [facility] mg/dL [facility] EGFR 87Comment: ESTIMATED mL/min/1.73 sq [facility] GFR IS NOT [facility] ACCURATE [place] CREATININE CLEARANCE IN PREDICTING GLOMERULAR FILTRATION RATE. ESTIMATED GFR IS NOT APPLICABLE FOR DIALYSIS PATIENTS. Specimen Blood - Entire right upper arm (body str ucture) Narrative Performed At Mines Inspector ID - [facility] Performing Organization Address [facility]/Zipcode Phone Number [address] [phone] CENTER POC ACTIVATED CLOTTING TIME (08/24/2020 4:53 PM CDT)Only the most recent of5 resultswithin the time period is included. Activated Clotting 147 sec [facility] Time Comment: [facility] : 74-137 seconds, Baseline CENTER : TESTED AT [address], [address] : Mines Inspector/Mill Turner ID = [id number] for RICHA SONG Specimen Blood Performing Organization Address [facility] Phone Number [address] [address] CENTER Platelet Aggregation: Function Screen (08/24/2020 9:36 AM CDT) Pathologist: Tate Parada M.D. [facility] (electonic signature) [facility] Platelets 188 150 - 450 [facility] K/CU [facility] ADP 23 (L) 62 - 100 % [facility] Platelet Rich Plasma 217 200 - 300 [facility] k/cu [facility] Plt. Function Screen Pattern of [facility] Interpretation disaggregation [facility] present with [facility] which may be characteristic of P2Y12 inhibitor effect. Correlation with medication history is required. Specimen Blood Narrative Performed At Platelet Function Screen results may be [facility] falsely low with platelet counts <75,000/cu mm. Mines Inspector ID - [id number] Performing Organization Address [facility]/Zipcode Phone Number [address] [address] [place] MRA neck without & with IV contrast (08/22/2020 4:53 PM CDT) Specimen Narrative Performed At Addendum [facility] RIS REPORT STATUS:A Upon additional review, there is stenosi s of the right internal carotid artery at turning point distal t o the bifurcation, at least 70% using NASCET-like criteria. This is in an area obscured by motion and pulsation artifact and is not well d epicted on the 3-D reconstructions. Signed: Sierra Sheridan MD Report Verified Date/Time: 08/24/2020 17:21:43 Addendum Ends FINAL REPORT MRA Head CLINICAL HISTORY: Unlisted Reason for Ex am Carotid stenosis TECHNIQUE: MRA of the head utilizing 3-D time-of-fl ight technique, with 3-D reconstructions. MRA of the neck utilizing 2-D and 3-D ti pr-nj-osmuef technique, with 3-D reconstructions. COMPARISON: None FINDINGS: Head: There is no evidence of intracranial ane urysm. No major branch vessel occlusion or high-grade focal stenosis. Neck: The carotid arteries in the neck are pat ent including their bifurcations. There is antegrade flow in the vertebral arteries in the neck. IMPRESSION: No proximal branch arterial occlusion or high-grade focal stenosis within the head and neck. Signed: Sierra Sheridan MD Report Verified Date/Time: 08/22/2020 17:31:18 Procedure Note Interface, External Ris In - 08/24/2020 5:23 PM CDT Addendum Begins REPORT STATUS:A Upon additional review, there is stenosi s of the right internal carotid artery at turning point distal t o the bifurcation, at least 70% using NASCET-like criteria. This is in an area obscured by motion and pulsation artifact and is not well d epicted on the 3-D reconstructions. Signed: Sierra Sheridan MD Report Verified Date/Time: 08/24/2020 1 7:21:43 Addendum Ends FINAL REPORT MRA Head CLINICAL HISTORY: Unlisted Reason for Ex am Carotid stenosis TECHNIQUE: MRA of the head utilizing 3-D time-of-fl ight technique, with 3-D reconstructions. MRA of the neck utilizing 2-D and 3-D ti pj-jm-nnvenm technique, with 3-D reconstructions. COMPARISON: None FINDINGS: Head: There is no evidence of intracranial ane urysm. No major branch vessel occlusion or high-grade focal stenosis. Neck: The carotid arteries in the neck are pat ent including their bifurcations. There is antegrade flow in the vertebral arteries in the neck. IMPRESSION: No proximal branch arterial occlusion or high-grade focal stenosis within the head and neck. Signed: Sierra Sheridan MD Report Verified Date/Time: 08/22/2020 1 7:31:18 Performing Organization Address City/State/Zipcode Phone Number [facility] MRA head with and without contrast (08/22/2020 4:53 PM CDT) Specimen Narrative Performed At Addendum Begins [facility] REPORT STATUS:A Upon additional review, there is stenosi s of the right internal carotid artery at turning point distal t o the bifurcation, at least 70% using NASCET-like criteria. This is in an area obscured by motion and pulsation artifact and is not well d epicted on the 3-D reconstructions. Signed: Sierra Sheridan MD Report Verified Date/Time: 08/24/2020 17:21:43 Addendum Ends FINAL REPORT MRA Head CLINICAL HISTORY: Unlisted Reason for Ex am Carotid stenosis TECHNIQUE: MRA of the head utilizing 3-D time-of-fl ight technique, with 3-D reconstructions. MRA of the neck utilizing 2-D and 3-D ti nc-ez-paubvj technique, with 3-D reconstructions. COMPARISON: None FINDINGS: Head: There is no evidence of intracranial ane urysm. No major branch vessel occlusion or high-grade focal stenosis. Neck: The carotid arteries in the neck are pat ent including their bifurcations. There is antegrade flow in the vertebral arteries in the neck. IMPRESSION: No proximal branch arterial occlusion or high-grade focal stenosis within the head and neck. Signed: Sierra Sheridan MD Report Verified Date/Time: 08/22/2020 17:31:18 Procedure Note Interface, External Ris In - 08/24/2020 5:23 PM CDT Addendum Begins REPORT STATUS:A Upon additional review, there is stenosi s of the right internal carotid artery at turning point distal t o the bifurcation, at least 70% using NASCET-like criteria. This is in an area obscured by motion and pulsation artifact and is not well d epicted on the 3-D reconstructions. Signed: Sierra Sheridan MD Report Verified Date/Time: 08/24/2020 1 7:21:43 Addendum Ends FINAL REPORT MRA Head CLINICAL HISTORY: Unlisted Reason for Ex am Carotid stenosis TECHNIQUE: MRA of the head utilizing 3-D time-of-fl ight technique, with 3-D reconstructions. MRA of the neck utilizing 2-D and 3-D ti ff-gz-veaqge technique, with 3-D reconstructions. COMPARISON: None FINDINGS: Head: There is no evidence of intracranial ane urysm. No major branch vessel occlusion or high-grade focal stenosis. Neck: The carotid arteries in the neck are pat ent including their bifurcations. There is antegrade flow in the vertebral arteries in the neck. IMPRESSION: No proximal branch arterial occlusion or high-grade focal stenosis within the head and neck. Signed: Sierra Sheridan MD Report Verified Date/Time: 08/22/2020 1 7:31:18 Performing Organization Address City/State/Zipcode Phone Number [facility] BUN (08/22/2020 1:00 PM CDT) Pathologist Sig nature BUN 16 7 - 21 mg/dL [facility] Specimen Blood Narrative Performed At Mines Inspector ID - HERB Abreu [facility] Performing Organization Address City/[facility]/Zipcode Phone Number [phone] [place] [address] CENTER Creatinine (08/22/2020 1:00 PM CDT) Creatinine 0.91Comment: 0.57 - 1.25 [facility] Specimen slightly mg/dL [facility] hemolyzed CENTER EGFR 84Comment: ESTIMATED mL/min/1.73 sq [facility] GFR IS NOT m [facility] ACCURATE CENTER CREATININE CLEARANCE IN PREDICTING GLOMERULAR FILTRATION RATE. ESTIMATED GFR IS NOT APPLICABLE FOR DIALYSIS PATIENTS. Specimen Blood Narrative Performed At Mines Inspector ID - HERB Abreu [facility] Performing Organization Address City/State/Zipcode Phone Number [facility] [address] [place] [address] CENTER SARS-CoV2/RT-PCR (Asymptomatic ONLY) (08/22/2020 12:49 PM CDT) SARS-COV2/RT-PCR Negative Not Detected, [facility] Negative, See [facility] external report CENTER for linked test SARS-COV-2 [facility] PERFORMING LAB [facility] Specimen Other - Nasopharyngeal wall structure (b abdiel structure) Narrative Performed At Negative result for this test determines that [facility] SARS-CoV-2 RNA was not present in the specimen above the Limit of Detection (LOD). However, Negative results do not preclude SARS-CoV-2 infection and should not be used as the sole basis for treatment or patient management decisions. Negative results must be combined with clinical observations, patient history, and epidemiological information. A false negative result may occur if a specimen is improperly collected, transported or handled. A false negative result should be considered if patient's recent exposures or clinical presentation indicate that COVID-19 (SARS-CoV-2) is likely and diagnostic tests for other causes of illness are negative. Re-testing should be considered in cases of suspected false negatives. The limit of detection for this assay is 800 copies/mL. This SARS CoV-2 test is a real-time RT-PCR test intended for the qualitative detection of nucleic acid from SARS-CoV-2 in a nasopharyngeal swab specimen collected from individuals suspected of COVID-19 by their healthcare provider. This test has not been Food and Drug Administration (FDA) cleared or approved. This is a modified version of an approved Emergency Use Authorization (EUA) and is in the process of review by the FDA. Once authorized by the FDA, the issued EUA will be effective until the declaration that circumstances exist justifying the authorization of the emergency use of in vitro diagnostic tests for detection and/or diagnosis of COVID-19 is terminated under Section 564(b)(2) of the Act or the EUA is revoked under Section 564(g) of the Act. Fact Sheet for Healthcare Providers: https://www.[employer]/sites/default/files/pro duct/documents/Fact_Sheet_HC_Providers_Lyra_SA RS-CoV-2.pdf Fact Sheet for Healthcare Patients: https://www.[employer]/sites/default/files/pro duct/documents/Fact_Sheet_Patients_Lyra_SARS-C oV-2.pdf Performing Laboratory: [place] [address] Performing Organization Address City/State/Zipcode Phone Number [address] [address] CENTER after 08/27/2019 Insurance Payer Benefit Plan / Subscriber ID Effective Dates Phone Addre ss Type Group AETNA - AETNA MEDICARE [id number]-Brenda [phone] [address] MEDICARE [id number] HMO POS PPO t 2 [id number] [place] [address] Advance Directives For more information, please contact: [phone] Code Status Date Activated Date Inactivated Comments Full Code 08/24/2020 8:04 AM 08/26/2020 1:52 PM This code status was determined by: Patient
--- OUTSIDE RECORDS SUMMARY | 2020-08-27 15:48 | XMS REPORT | Summary of Care ---
:1955 Author Organization [facility] Address [address] [place] [address] Care Team Providers Name Role Phone Deisydalton Esequiel Vijaya Primary Care Provider Reason for Visit Reason Comments Refill Request Encounter Details Date Type Department Care Team Description 07/27/2020 Refill [facility] Endocrinology- Johny Lockhart MD Refill Request [place] [address] [address] [place] [id number] [phone] Allergies No Known Allergiesdocumented as of this encounter (statuses as of 07/27/2020) Medications Medication Sig Dispensed Refills Start Date End Date Status JN-2-TZE-DHA-FISH Take by mouth. 0 Active OIL-FLAX-E ORAL [...] Last thyroid labs done 03/13/19. Routing to [facility] to schedule follow up and lab appointment. documented in this encounter Plan of Treatment Date Type Specialty Care Team Description 08/26/2020 Office Visit Endocrinology Diabetes & Clifford y, Johny Mares MD Metabolism [address] [place] [address] [phone] Health Maintenance Due Date Last Done Comments [...] Dates Phone Address Type AETNA AETNA O [id number] 2015-Present O documented as of this encounter
--- OUTSIDE RECORDS SUMMARY | 2020-08-27 15:49 | XMS REPORT | Summary of Care ---
:1955 Author Organization [facility] - Health Address [address] [place] [address] Care Team Providers Name Role Phone Gonzalo Esequiel Lilly Primary Care Provider Encounter Details Date Type Department Care Team Description 08/17/2020 Orders Only [facility] Doctor Unassigned, No [address] [facility] [place] [address] [address] [place] [address] Allergies No Known Allergiesdocumented as of this encounter (statuses as of 08/17/2020) Medications Medication Sig Dispensed Refills Start Date End Date Status IR-9-GKE-DHA-FISH Take by mouth. 0 Active OIL-FLAX-E ORAL [...] as of this encounter (statuses as of 08/17/2020) Active Problems Not on filedocumented as of this encounter (statuses as of 08/17/2020) Immunizations Name Administration Dates Next Due TDAP 10/31/2018 documented as of this encounter Social History Tobacco Use Types Packs/Day Years Used Date Never Smoker Smokeless Tobacco: Never Used Alcohol Use Drinks/Week oz/Week Comments Yes Rare Sex Assigned at Date Recorded Not on file documented as of this encounter Last Filed Vital Signs Not on filedocumented in this encounter Plan of Treatment Date Type Specialty Care Team Description 08/26/2020 Office Visit Endocrinology Diabetes & Johny Burk MD Metabolism [address] [address] 15 [phone] Health Maintenance Due Date Last Done Comments [...] 10/31/2028 10/31/2018 documented as of this encounter Procedures Procedure Name Priority Date/Time Associated Diagnosis Comme nts EXTERNAL PROVIDER Routine 08/17/2020 12:01 AM CDT RECORDS documented in this encounter Results Not on filedocumented in this encounter Insurance Payer Benefit Plan / Group Subscriber ID Effective Dates Phone Address Type AETNA AETNA O [id number] 2015-Present O documented as of this encounter
--- OUTSIDE RECORDS SUMMARY | 2020-08-27 15:49 | XMS REPORT | Continuity of Care Document ---
:1955 Author Organization [facility] t Address [address] [place] [address] Care Team Providers Name Role Phone Montez HILLMAN, Tyshawn Primary Care Physician Sonal HILLMAN, Doron Stanford Attending Clinician [phone] [place] HILLMAN Attending Clinician Lebron PIERCE Attending Clinician Unavailable SIA PRUITT Attending Clinician Unavailable Doctor Unassigned, Name Attending Clinician Unavailable Aurelio HILLMAN, Jayant Attending Clinician Tanika HILLMAN, H Attending Clinician Rommel Underwood MD, Bonilla Attending Clinician SIA PRUITT Admitting Clinician Unavailable Payers Payer Name Policy Type Policy Effective Date Expiration Date Sour ce Number AETNA - MEDICARE [id number] ZAHRA [facility] CAREAETNA MEDICARE [facility] [id number] [id number] [place] [id number] MEDICAREMEDICARE PART [id number] 2020 [place] AND 00:00:00 Religion [id number] [facility] Problems Condition Condition Condition Status Onset Resolution Last Treating Co mments Source Name Details Category Date Date Treatment Clinician Date Carotid Carotid Disease Active 2019-[address] [facility] stenosis, stenosis, 0-21 [facility] - right right 00:00: Medical 00 Center Dissection Dissection Disease Active 2019-[address] of left of left 0-21 [facility] common common 00:00: Medical iliac iliac 00 Center artery artery 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[facility] squamous squamous 0-18 [facility] - cell cell 00:00: Medical carcinoma carcinoma 00 Cent er of head of head and neck and neck History of History of Disease Active 2019-[address] lymph node lymph node 0-18 Corie kes - excision excision 00:00: Medica l 00 Center DM2 DM2 Disease Active 2019-[address] [facility] (diabetes (diabetes 0-18 [facility] - mellitus, mellitus, 00:00: [facility] type 2) type 2) 00 Center Radiation Radiation Disease Active 2019-[address] [facility] therapy therapy 0-18 [facility] - complicati complicati 00:00: Me dical on on 00 Center Carotid Carotid Disease Active 2019-[address] artery artery 0-18 [facility] - stenosis, stenosis, 00:00: [facility] symptomati symptomati 00 Ce nter c, right c, right s/p 10x31 s/p 10x31 Wallstent Wallstent 08/24/2020 08/24/2020 PVD PVD Disease Active 2019-[address] [facility] (periphera (periphera 0-18 Corie kes - l vascular l vascular 00:00: Me dical disease) disease) 00 Center Orthostati Orthostati Disease Active 2019-[address] c c 0-18 [facility] - hypotensio hypotensio 00:00: Me dical n n 00 Center Allergies, Adverse Reactions, Alerts This patient has no known allergies or adverse reactions. Family History Family Member Diagnosis Comments Start Date Stop Date Source Natural father Stroke [facility] Natural mother Cancer [facility] Social History Social Habit Start Date Stop Date Quantity Comments Source History SDOH [facility] - Alcohol Std Drinks [facility] History SDOH [facility] - Alcohol Binge Medical Federico ter Sex Assigned At [facility] Exposure to Not sure [facility] - SARS-CoV-2 (event) [facility] Tobacco use and 2020-08-26 2020-08-[address] Corie kes - exposure 00:00:00 00:00:00 [facility] Alcohol intake 2020-08-26 2020-08-26 [facility] (finding) History SDOH 2020-08-16 2020-08-[address] [facility] - Alcohol Frequency 00:00:00 00:00:00 [facility] Alcohol Comment 2020-08-16 2020-08-[address] [facility] - 00:00:00 00:00:00 [facility] Smoking Status Start Date Stop Date Source Never sm[facility] Medications Ordered Filled Start Stop Current Ordering Indication Dosage Frequency Signature Comments Components Source Medication Medication Date Date Medication? Clinician (SIG) Name Name cholecalcif 2019-11 Yes 5000U QD Take 5,[address] [facility] berna 0-23 Units by [facility]ukes - (VITAMIN 11:52: mouth Medical D3) 25 mcg 07 daily . [place] (1,000 unit) tablet ascorbic 2019-11 Yes 1000mg QD Take 1,[address] acid, 0-23 mg by [facility] - vitamin C, 11:52: mouth Medica l (VITAMIN C) 07 daily. [place] 1000 MG tablet vitamin E 2019-11 Yes 400U QD Take [address] 400 UNIT 0-23 Units by [facility]ukes - capsule 11:52: mouth Medical 07 daily. [place] MAGNESIUM 2019-11 Yes QD Take by [facility] ORAL 0-23 mouth [facility]ukes - 11:52: daily. [address] BABY 2019-11 Yes 81mg QD Take [address] ASPIRIN 0-23 by mouth [facility] - ORAL 11:52: daily. [address] OMEGA-3 2019-11 Yes 1{capsu Q.5D Take 1 [facility] FATTY 0-23 le} capsule by [facility]ukes - ACIDS-FISH 11:52: mouth 2 Medi carol OIL ORAL 07 (two) Center times daily. omega-3 2019-11 2020- No 2g Q.5D Take 2 g [facility] t fatty 0-19 10-19 by mouth 2 [facility]ukes - acids-fish 12:44: 00:00 (two) Medic al oil 02 :00 times Center 340-1,000 daily. mg Cap per capsule clopidogreL 2019-11 Yes 75mg QD Take [address] (PLAVIX) 75 0-14 by mouth [facility] - mg tablet 00:00: daily Took Me dical 00 150mg [place] 08.24.20. atorvastati Yes 40mg QD Take [address] n (LIPITOR) 8-19 by mouth [facility] - 40 MG 00:00: daily. Medical tablet 00 [place] olmesartan Yes 40mg QD Take [address] (BENICAR) 8-19 by mouth [facility] - 40 MG 00:00: daily. Medical tablet 00 [place] testosteron Yes APPLY [address] e 20.25 8-04 PUMP TO [facility]ukes - mg/1.25 00:00: SHOULDER Medica l gram (1.62 00 EVERY Center %) GlPm OTHER DAY metFORMIN Yes 1000mg Take 1,[address] (GLUCOPHAGE 7-30 mg by Lukes - ) 1000 MG 00:00: mouth 2 Medic al tablet 00 (two) Center times daily with breakfast and dinner. levothyroxi Yes 125ug QD Take [address] ne 6-[address] [facility] [facility] - (SYNTHROID, 00:00: mouth Medic al LEVOTHROID) 00 daily. Center 125 MCG tablet Vital Signs Vital Name Observation Time Observation Value Comments Source Systolic blood 2020-08-26 07:35:00 106 mm[Hg] [facility] pressure [facility] Diastolic blood 2020-08-26 07:35:00 67 mm[Hg] [facility] S t [facility] Heart rate 2020-08-26 07:35:00 63 /min [facility] Body temperature 2020-08-26 07:35:00 36.78 Linnea [facility] Respiratory rate 2020-08-26 07:35:00 18 /min [facility] Oxygen saturation in 2020-08-26 07:35:00 98 /min [facility] - Arterial blood by Medical Ce nter Pulse oximetry Body weight 2020-08-25 07:25:00 106.595 kg [facility] BMI 2020-08-25 07:25:00 33.72 kg/m2 [facility] Body height 2020-08-24 07:48:00 177.8 cm [facility] Procedures Procedure Date / Time Performed Performing Clinician Sourc e POCT-GLUCOSE METER 2020-08-26 07:22:00 Sonal [facility] POCT-GLUCOSE METER 2020-08-25 21:44:00 Sonal [facility] EEG AWAKE AND DROWSY 2020-08-25 17:03:00 Sivakumar Ríos [facility] POCT-GLUCOSE METER 2020-08-25 15:19:00 Sonal [facility] APTT 2020-08-25 10:27:00 Aleksandr [facility] PROTHROMBIN TIME/INR 2020-08-25 10:27:00 Aleksandr [facility] POCT-BLOOD GASES, 2020-08-25 10:15:00 Sonal [facility] es - VENOUS [facility] POCT-SODIUM 2020-08-25 10:15:00 Sonal [facility] POCT-POTASSIUM 2020-08-25 10:15:00 Sonal [facility] POCT-HEMOGLOBIN 2020-08-25 10:15:00 [facility] POCT-HEMATOCRIT 2020-08-25 10:15[facility]-CALCIUM IONIZED 2020-08-25 10:15:00 Sonal [facility] POCT-GLUCOSE 2020-08-25 10:15:00 Sonal [facility] CT BRAIN/STROKE TEST 2020-08-25 09:49:00 Augusta N[facility] POCT-GLUCOSE METER 2020-08-25 08:57:[facility]OL[facility]EL 2020-08-25 05:20:00 [facility] [place] [address] CBC (HEMOGRAM ONLY) 2020-08-25 05:20:00 Aleksandr [facility] POCT-ACT 2020-08-24 16:53:00 Doron Pruitt [facility] POCT-ACT 2020-08-24 15:51:00 Doron Pruitt [facility] POCT-ACT 2020-08-24 13:43:00 Doron Pruitt [facility] POCT-ACT 2020-08-24 13:24:00 Doron Pruitt [facility] POCT-ACT 2020-08-24 13:06:00 [facility] CAR[facility]ID MCR - 2020-08-24 11:21:00 Doron Pruitt [facility] - IP PROC ONLY [facility] PLATELET AGGREGATION: 2020-08-24 09:36:00 Doron Pruitt [facility] - FUNCTION SCREEN [facility] MRA NECK WITH & WITHOUT 2020-08-22 16:53:00 Doron Pruitt [facility] - CONTRAST [facility] MRA HEAD WITH & WITHOUT 2020-08-22 16:53:00 Doron Pruitt [facility] - IV CONTRAST [facility] BUN 2020-08-22 13:00:00 Doron Pruitt [facility] CREATININE 2020-08-22 13:00:00 [facility] SARS-COV2/RT-PCR ([facility] 2020-08-22 12:49:00 Doron Pruitt [facility] - & REF LABS) [facility] XR THORACIC SPINE 2 VW 2020-05-26 13:42:44 Garth Bankso XR CERVICAL SPINE 2020-05-26 13:42:05 Garth Banks Plan of Care Planned Activity Planned Date Details Comments Source Future Scheduled 2020-08-21 Hemoglobin A1c ZAHRA Moise kes - Test 00:00:00 [facility] (procedure) [code = 49889329] Future Scheduled 2020 65+ PNEUMOCOCCAL Justo Zapien Test 00:00:00 VACCINE (1 of 1 - PPSV23) [code = 65+ PNEUMOCOCCAL VACCINE (1 of 1 - PPSV23)] Future Scheduled 2020 PNEUMOCOCCAL 65+ Y[facility] - Test 00:00:00 (1 of 1 - Medical Center [id number] PCV13) [code = PNEUMOCOCCAL 65+ YRS (1 of 1 - [id number] PCV13)] Future Scheduled 2020-07-05 INFLUENZA VACCINE (#1) [facility] - Test 00:00:00 [code = INFLUENZA Medical Ce nter VACCINE (#1)] Future Scheduled 2020-07-05 Medicare IPPE (WELCOME [facility] - Test 00:00:00 TO MEDICARE) [code = Medical Center Medicare IPPE (WELCOME TO MEDICARE)] Future Scheduled 2020-06-04 INFLUENZA VACCINE [place] [facility] Test 00:00:00 [code = INFLUENZA VACCINE] Future Scheduled 2005 COLONOSCOPY SCREENING [place] [facility] Test 00:00:00 [code = COLONOSCOPY SCREENING] Future Scheduled 2005 SHINGLES VACCINES (#1) [place] [facility] Test 00:00:00 [code = SHINGLES VACCINES (#1)] Future Scheduled [address] - Test 00:00:00 (procedure) [code = Medical Center 70976354] Future Scheduled 1965 DIABETIC EYE EXAM [facility] - Test 00:00:00 [code = DIABETIC EYE Medical Center EXAM] Future Scheduled [address] - Test 00:00:00 examination Medical Center (regime/therapy) [code = 399152335] Future Scheduled 1965 Urine screening for [facility] - Test 00:00:00 protein (procedure) Medical Center [code = 163662332] Future Scheduled [address] [facility] - Test 00:00:00 malignant neoplasm of Medica l Center colon (procedure) [code = 707428862] Encounters Start End Encounter Admission Attending Care Care Encounter Source Date/Time Date/Time Type Type Clinicians Facility Department ID 2020-08-17 2020-08-17 Orders Doctor ALARCON [id number] 00:00:00 00:00:00 Only Unassigned, MILA [id number] [place] [facility] [id number] 2020-07-27 2020-07-27 [facility] [id number] 00:00:00 00:00:00 Johny Galindo [id number] [employer] [id number] [place] [id number] [facility] 2020-05-26 2020-05-26 Outpatient [facility] [id number] [place] 00:00:00 00:00:00 LELKES, [address] 2020-05-26 2020-05-26 [facility] [id number] [address] [place] 00:00:00 00:00:00 LELKES, [address] 2020-05-26 2020-05-26 [facility] [id number] [address] [place] 00:00:00 00:00:00 LELKES, [address] 2020-05-26 2020-05-26 [facility] [id number] [address] [place] 00:00:00 00:00:00 LELKES, [address] Results Test Description Test Time Test Comments Results Result Comments Source POC-Glucose meter 2020-08-26 07:35:00 Test Item Value Reference Range Interpretation Comme nts POC-Glucose Meter (test code = 186 mg/dL 70-110 H : TESTED AT [facility] [address] [id number]) [facility], [facility] 30: Communications Department Head/Techni betsey ID = [id number] for BLU MEYERS Lab Interpretation (test code = Abnormal 19856-8) [facility] [id number] 07:35:00 Test Item Value Reference Range Interpretation Comments POC-GLUCOSE METER 186 mg/dL 70-110 H : TESTED A T [facility] [address] ([employer]) (test code = LAM Carrillo [facility], 1538) [address]: Communications Department Head/Techni betsey ID = [id number] for BLU MEYERS POCT-GLUCOSE [id number] 21:56:00 Test Item Value Reference Range Interpretation Comments POC-GLUCOSE METER 235 mg/dL 70-110 H : TESTED A T [facility] [address] ([employer]) (test code = LAM Carrillo [facility], 1538) [address]: Communications Department Head/Techni betsey ID = [id number] for JAMESON SANCHEZ EEG AWAKE AND [id number] 18:33:00Reason for exam:->Recurrent episodes of confusionCHI [facility]STERN [facility]ENTER[facility]: ARON BRITO : 1955 Sex: MEEG report [facility] DATE OF TEST: 08/25/20 DATE OF REPORT: 08/25/20 ACC: [id number] time: 1642 Stop time: 1703 ICD-10: R41.82 CPT: 34903 HISTORY: 65yo R-handed male w/ PMH of HTN, HLD, DM2, SCC of head & neck, hypothyroidism, HUNTER, PVD, orthostatic hypotension, h/o right neck lymph node dissection, chronic left common iliac artery dissection, & critical right ICA stenosis likely 2/2 radiation therapy s/p cerebral angio w/ right ICA stenting on 08/24 c/b bilateral groin hematomas who presents as stroke alert for symptoms of confusion & mild aphasia. Current symptoms include cognitive impairment & loss of vision, affecting primarily the L-eye, symptoms have improved. MEDICATIONS: aspirin, atorvastin, clopidogrel, levothyroxine TECHNICAL SUMMARY: This louann digital video EEG recorded with 32 input channels reviewed with bipolar and referential montages using the modified combinatorial system nomenclature. DESCRIPTION OF RECORD: During the maximally alert state a 9-10 Hz posterior dominant rhythm was seen that was asymmetric, better seen over the left hemisphere, reactive to eye opening and well regulated. More anteriorly, low voltage frontocentral beta predominated. Continuous 2-3 Hz slowing was seen over the right hemisphere, maximal right temporal region, at times with superimposed theta frequencies. Drowsiness was characterized by alpha attenuation and increased frontocentral theta. Stage 2 sleep structures were not seen. HV: Hyperventilation was not performed. PHOTIC STIMULATION: Flash stimulation was done from 1-30 Hz; no photic driving was seen; photoparoxysmal responses were absent. IMPRESSION: Abnormal Awake and Drowsy EEGContinuous slow, lateralized right hemisphere CLINICAL CORRELATION: This EEG is significant for right hemispheric focal dysfunction. No epileptiform discharges or electrographic seizures were seen. An EEG without epileptiform discharges does not exclude the possibility of epilepsy. If the clinicalsuspicion of epilepsy remains, consider additional EEG recordings. Olivier Jamison MD, MS Clinical Neurophysiology/Epilepsy Attending 06:33 PMEEG AWAKE AND [id number] 18:33:00 Interface, External Ris In - 08/25/2020 6:34 PM CDTEEG report [facility] DATE OF TEST: 08/25/20 DATE OF REPORT: 08/25/20 ACC: [id number] Start time: 1642 Stop time: 1703 ICD-10: R41.82 CPT: 95882 HISTORY: 65yo R-handed male w/ PMH of HTN, HLD, DM2, SCC of head & neck, hypothyroidism, HUNTER, PVD, orthostatic hypotension, h/o right neck lymph node dissection, chronic left common iliac artery dissection, & critical right ICA stenosis likely 2/2 radiation therapy s/p cerebral angio w/ right ICA stenting on 08/24 c/b bilateral groin hematomas who presents as stroke alert for symptoms of confusion & mild aphasia. Current symptoms include cognitive impairment & loss of vision, affecting primarily the L-eye, symptoms have improved. MEDICATIONS: aspirin, atorvastin, clopidogrel, levothyroxine TECHNICAL SUMMARY: This is a digital video EEG recorded with 32 input channels reviewed with bipolar and referential montages using the modified combinatorial system nomenclature. D ESCRIPTION OF RECORD: During the maximally alert state a 9-10 Hz posterior dominant rhythm was seenthat was asymmetric, better seen over the left hemisphere, reactive to eye opening and well regulated. More anteriorly, low voltage frontocentral beta predominated. Continuous 2-3 Hz slowing was seen over the right hemisphere, maximal right temporal region, at times with superimposed theta frequencies. Drowsiness was characterized by alpha attenuation and increased frontocentral theta. Stage 2 sleep structures were not seen. HV: Hyperventilation was not performed. PHOTIC STIMULATION: Flash stimulation was done from 1-30 Hz; no photic driving was seen; photoparoxysmal responses were absent. IMPRESSION: Abnormal Awake and Drowsy EEG Continuous slow, lateralized right hemisphere CLINICAL CORRELATION: This EEG is significant for right hemispheric focal dysfunction. No epileptiform discharges or electrographic seizures were seen. An EEG without epileptiform discharges does not exclude the possibility of epilepsy. If the clinical suspicion of epilepsy remains, consider additional EEG recordings. Olivier Jamison MD, MS Clinical Neurophysiology/Epilepsy Attending [facility] [id number] 15:32:00 Test Item Value Reference Range Interpretation Comments POC-GLUCOSE METER 199 mg/dL 70-110 H : TESTED A T [facility] 6720 (BEAKER) (test code = LAM Carrillo [facility], 1538) [address]: Communications Department Head/Techni betsey ID = [id number] for LISA MUIR [id number] 11:32:00 Test Item Value Reference Range Interpretation Comments PTT (test code = 99906-3) 27.6 22.5- 36.0 seconds Lab Interpretation (test code = Normal 83305-4) [facility]2020[facility] 11:32:00 Test Item Value Reference Range Interpretation Comments PARTIAL THROMBOPLASTIN TIME 27.6 seconds 22.5-36.0 (BEAKER) (test code = 760) Prothrombin time/[id number] 11:31:00 Test Item Value Reference Range Interpretation Comments Protime (test code = 13.9 11.9- 14.2 5902-2) seconds INR (test code = 1.10 <=5.90 6301-6) ALICIA (test code = ALICIA) Effective 04/01/2019: PT Reference Range ChangeNew: 11.9-14.2 Previous: 11.7-14.7 RECOMMENDED COUMADIN/WARFARIN INR THERAPY RANGESSTANDARD DOSE: 2.0-3.0 Includes: PROPHYLAXIS for venous thrombosis, systemic embolization; TREATMENT for venous thrombosis and/or pulmonary embolus.HIGH RISK: Target INR is 2.5-3.5 for patients wiht mechanical heart valves. Lab Interpretation Normal (test code = 59235-5) [facility] CenterPROTHROMBIN TIME/[id number] 11:31:00 Test Item Value Reference Range Interpretation Comments PROTIME (BEAKER) (test code = 13.9 seconds 11.9-14.2 759) INR (BEAKER) (test code = 370) 1.10 <=5.90 Effective 04/01/2019: PT Reference Range ChangeNew: 11.9-14.2 Previous: 11.7- 14.7RECOMMENDED COUMADIN/WARFARIN INR THERAPY RANGESSTANDARD DOSE: 2.0-3.0 Includes: PROPHYLAXIS for venous thrombosis, systemic embolization; TREATMENT for venous thrombosis and/or pulmonary embolus.HIGH RISK: Target INR is2.5-3.5 for patients wiht mechanical heart valves.OFHR-[id number] 10:29:00 Test Item Value Reference Range Interpretation Comments POC-Glucose (test code = 249 mg/dL 70-110 H : T ASHKAN AT [facility] 1855) 67[address] [facility], 770 30: Communications Department Head/Techni betsey ID = [id number] for SARA CAZARES Lab Interpretation (test Abnormal code = 52969-1) [facility] CenterPOCT-[id number] 10:29:00 Test Item Value Reference Range Interpretation Comments POC-GLUCOSE (BEAKER) 249 mg/dL 70-110 H : TESTE D AT [facility] 6720 (test code = 1855) [facility], [address]: Communications Department Head/Techni betsey ID = [id number] for SARA CAZARES POC-Blood gases, [id number] 10:28:00 Test Item Value Reference Range Interpretation Comments Temp. Celsius-POC (test code = 1834) FIO2-POC (test code = 1835) pH, Venous-POC (test 7.396 7.320-7.420 : TESTE D AT [facility] code = 1842) [address] [facility], 770 30 PCO2, Venous-POC (test 41.7 41.0- 51.0 mm Hg code = 1843) PO2, Venous-POC (test 41.0 25.0- 40.0 mm Hg H code = 1844) SO2, Venous-POC (test 76.0 % 40-70 H code = 1845) HCO3, Venous-POC (test 25.6 meq/L 21-29 code = 1846) BE, Venous-POC (test 1.0 meq/L -2-3 : code = 1847) Communications Department Head/Techni shelby n ID = [id number] f or IBAY, SARA Lab Interpretation (test Abnormal code = 19879-4) [facility]-Calcium [id number] 10:28:00 Test Item Value Reference Range Interpretation Comments POC-Calcium Ionized 1.17 mmol/L 1.12-1.27 : TESTED AT [facility] (test code = 1536) [address] [place] [address], [facility] 30: Communications Department Head/Techni shelby n ID = [id number] f or IBAY, SARA Lab Interpretation (test Normal code = 99646-3) [facility]-[id number] 10:28:00 Test Item Value Reference Range Interpretation Comments POC-Potassium (test code 4.1 meq/L 3.6-5.5 : T ESTED AT [facility] = 1540) [address] [place] [address], [facility] 30: Communications Department Head/Techni betsey ID = [id number] for IBAY, SARA Lab Interpretation (test Normal code = 06325-7) [facility]-[id number] 10:28:00 Test Item Value Reference Range Interpretation Comments POC-Sodium (test code = 134 meq/L 135-148 L : TE STED AT [facility] 1542) [address] [place] [address], [facility] 30: Communications Department Head/Techni betsey ID = [id number] for IBAY, ASRA Lab Interpretation (test Abnormal code = 76056-7) [facility]-[id number] 10:28:00 Test Item Value Reference Range Interpretation Comments POC-Hemoglobin (test code 12.9 g/dL 13-16.8 L : TESTED AT [facility] = 1856) [address] [place] [address], [facility] 30: Communications Department Head/Techni betsey ID = [id number] for SARA CAZARES Lab Interpretation (test Abnormal code = 57366-3) [facility] CenterPOCT-[id number] 10:28:00 Test Item Value Reference Range Interpretation Comments POC-Hematocrit (test code 38 % 40-50 L : = 1857) Communications Department Head/Techni betsey ID = [id number] for SARA CAZARES Lab Interpretation (test Abnormal code = 55052-7) [facility]-BLOOD GASES, [id number] 10:28:00 Test Item Value Reference Range Interpretation Comments TEMP, CELSIUS-POC (BEAKER) (test code = 1834) FIO2-POC (BEAKER) (test code = 1835) PH, VENOUS-POC 7.396 7.320-7.420 : TESTED AT [facility] 6720 (BEAKER) (test code [facility], = 1842) [address] PCO2, VENOUS-POC 41.7 mm Hg 41.0-51.0 (BEAKER) (test code = 1843) PO2, VENOUS-POC 41.0 mm Hg 25.0-40.0 H (BEAKER) (test code = 1844) SO2, VENOUS-POC 76.0 % 40.0-70.0 H (BEAKER) (test code = 1845) HCO3, VENOUS-POC 25.6 meq/L 21.0-29.0 (BEAKER) (test code = 1846) BASE EXCESS, 1.0 meq/L -2.0-3.0 : Communications Department Head/Tech heena VENOUS-POC (BEAKER) ID = [id number] for SAGE, (test code = 1847) SARA AALY-[id number] 10:28:00 Test Item Value Reference Range Interpretation Comments POC-SODIUM (BEAKER) 134 meq/L 135-148 L : TESTED AT [facility] 6720 (test code = 1542) [facility], [address]: Communications Department Head/Techni betsey ID = [id number] for SARA CAZARES [id number] 10:28:00 Test Item Value Reference Range Interpretation Comments POC-POTASSIUM 4.1 meq/L 3.6-5.5 : TESTED AT [facility] 6720 (BEAKER) (test code [facility], = 1540) [address]: Communications Department Head/Techni betsey ID = [id number] for SARA CAZARES [id number] 10:28:00 Test Item Value Reference Range Interpretation Comments POC-HEMOGLOBIN 12.9 g/dL 13.0-16.8 L : TESTED AT [facility] 6720 ([facility]) (test code [facility], = 1856) [address]: Communications Department Head/Techni betsey ID = [id number] for SARA CAZARES [id number] 10:28:00 Test Item Value Reference Range Interpretation Comments POC-HEMATOCRIT 38 % 40-50 L : Communications Department Head/Te chnician ID = ([facility]) (test code = 433046 for SARA CAZARES 1857) POCT-CALCIUM [id number] 10:28:00 Test Item Value Reference Range Interpretation Comments POC-CALCIUM IONIZED 1.17 mmol/L 1.12-1.27 : TESTED AT [facility] ([facility]) (test code = 6720 [facility] 1536) [place], [address]: Communications Department Head/Techni betsey ID = [id number] for SARA CAZARES CT, BRAIN/STROKE [id number] 09:56:00 [facility] BRITOTeena Munguia : 1955 Sex: MFINAL REPORT CT Head without contrast CLINICAL HISTORY: Confusion/delirium, altered LOC, unexplained TECHNIQUE: Contiguous axial images through the head without contrast. This exam was performed according to the departmental dose optimization program which includes automated exposure control, adjustment of the mA and/or kV according to the patient size, and/or use of an iterative reconstruction technique. COMPARISON: None FINDINGS: There is no CT evidence of acute infarct or intracranial hemorrhage. There is mild generalized parenchymal volume loss without hydrocephalus, midline shift, or apparent mass effect. There are no extra-axial fluid collections. The skull is intact. The paranasal sinuses are well-aerated. IMPRESSION: There is no CT evidence of acute infarct or intracranial hemorrhage. The findings were discussed with the stroke neurologist at 9:55 AM. Signed: Chika Escobedo Verified Date/Time: 08/25/2020 09:56:18 Reading Location: [address] Neuro Reading Room HOSPITAL brain/stroke test [id number] 09:56:00Interface, External Ris In - 08/25/2020 9:[address] Head without contrast CLINICAL HISTORY: Confusion/delirium, altered LOC, unexplained TECHNIQUE: Contiguous axial images through the head without contrast. This exam was performed according to the departmental dose optimization program which includes automated exposure control, adjustment of the mA and/or kV according to the patient size, and/or use of an iterative reconstruction technique. COMPARISON: None FINDINGS: There is no CT evidence of acute infarct or intracranial hemorrhage. There is mild generalizedparenchymal volume loss without hydrocephalus, midline shift, or apparent mass effect. There are no e xtra-axial fluid collections. The skull is intact. The paranasal sinuses are well-aerated. IMPRESSION: There is no CT evidence of acute infarct or intracranial hemorrhage. The findings were discussed with the stroke neurologist at 9:55 AM. Signed: Chika Escobedo Verified Date/Time: 08/25/2020 09:56:18 Reading Location: [address] Neuro Reading Room [facility] [id number] 09:21:00 Test Item Value Reference Range Interpretation Comments POC-GLUCOSE METER 221 mg/dL 70-110 H : TESTED A T [facility] 6720 (BEAKER) (test code [facility], = 1538) [address]: Communications Department Head/Techni betsey ID = [id number] for OCHO OJASMINA Basic metabolic [id number] 06:49:00 Test Item Value Reference Range Interpretation Comments Sodium (test code = 138 meq/L 410-120 6200-2) Potassium (test code = 5.0 meq/L 3.5-5.1 2823-3) Chloride (test code = 102 meq/L 98-107 2075-0) CO2 (test code = 28 meq/L 22-29 2028-9) BUN (test code = 13 mg/dL 7-21 3094-0) Creatinine (test code 0.88 mg/dL 0.57-1.25 = 2160-0) Glucose (test code = 193 mg/dL 70-105 H 2345-7) Calcium (test code = 8.4 mg/dL 8.4-10.2 56570-7) EGFR (test code = 87 mL/min/1.73 [place] [address]-4) NOT ACCURATE CREATININE CLEARANCE IN PREDICTING GLOMERULAR FILTRATION RATE . ESTIMATED GFR I S NOT APPLICABLE FOR DIALYSIS PATIENTS. ALICIA (test code = ALICIA) Communications Department Head ID - JACQUI M Lab Interpretation Abnormal (test code = 14906-4) [facility] METABOLIC [id number] 06:49:00 Test Item Value Reference Range Interpretation Comments SODIUM (BEAKER) 138 meq/L 136-145 (test code = 381) POTASSIUM (BEAKER) 5.0 meq/L 3.5-5.1 (test code = 379) CHLORIDE (BEAKER) 102 meq/L 98-107 (test code = 382) CO2 (BEAKER) (test 28 meq/L 22-29 code = 355) BLOOD UREA NITROGEN 13 mg/dL 7-21 (BEAKER) (test code = 354) CREATININE (BEAKER) 0.88 mg/dL 0.57-1.25 (test code = 358) GLUCOSE RANDOM 193 mg/dL 70-105 H (BEAKER) (test code = 652) CALCIUM (BEAKER) 8.4 mg/dL 8.4-10.2 (test code = 697) EGFR (BEAKER) (test 87 mL/min/1.73 ESTIMA DEBORAH GFR IS code = 1092) sq m NOT ACCURATE CREATININE CLEARANCE IN PREDICTING GLOMERULAR FILTRATION RATE . ESTIMATED GFR I S NOT APPLICABLE FOR DIALYSIS PATIEN TS. Communications Department Head ID - JACQUI [facility] (Hemogram only)2020-08-25 05:41:00 Test Item Value Reference Range Interpretation Comments WBC (test code = 6690-2) 10.3 3.5- 10.5 K/L RBC (test code = 789-8) 4.26 4.63- 6.08 M/L L MCHC (test code = 786-4) 33.3 32.3- 36.5 GM/DL L Hematocrit (test code = 4544-3) 39.3 % 40.1-51 L MCV (test code = 787-2) 92.3 fL 79-92.2 H MCH (test code = 785-6) 30.8 pg 25.7-32.2 RDW (test code = 788-0) 13.2 % 11.6-14.4 Platelets (test code = 777-3) 181 150- 450 K/CU MM MPV (test code = 56665-0) 10.9 fL 9.4-12.4 nRBC (test code = 413) 0 0- 0 /100 WBC Lab Interpretation (test code = Abnormal 59128-2) [facility]2020-08-25 05:41:00 Test Item Value Reference Range Interpretation Comments WHITE BLOOD CELL COUNT (BEAKER) 10.3 K/ L 3.5-10.5 (test code = 775) RED BLOOD CELL COUNT (BEAKER) 4.26 M/ L 4.63-6.08 L (test code = 761) HEMOGLOBIN (BEAKER) (test code = 13.1 GM/DL 13.7-17.5 L 410) HEMATOCRIT (BEAKER) (test code = 39.3 % 40.1-51.0 L 411) MEAN CORPUSCULAR VOLUME (BEAKER) 92.3 fL 79.0-92.2 H (test code = 753) MEAN CORPUSCULAR HEMOGLOBIN 30.8 pg 25.7-32.2 (BEAKER) (test code = 751) MEAN CORPUSCULAR HEMOGLOBIN CONC 33.3 GM/DL 32.3-36.5 (BEAKER) (test code = 752) RED CELL DISTRIBUTION WIDTH 13.2 % 11.6-14.4 (BEAKER) (test code = 412) PLATELET COUNT (BEAKER) (test 181 K/CU MM 150-450 code = 756) MEAN PLATELET VOLUME (BEAKER) 10.9 fL 9.4-12.4 (test code = 754) NUCLEATED RED BLOOD CELLS 0 /100 WBC 0-0 (BEAKER) (test code = 413) MR, MRA, NECK, [id number] 17:21:00Intracranial extracranial \T\ arch w/w/o contrast Unlisted Reason for Exam - Click Yes and Enter Reason Below->Yes Unlisted Reason for Exam->Carotid stenosis Anesthesia:->None Deos the patient have an implanted electronic device?->No [facility] 1955 Sex: MAddendum BeginsREPORT STATUS:A Upon additional review, there is stenosis of the right internal carotid artery at turning point distal to the bifurcation, at least 70% using NASCET-like criteria. This is in an area obscured by motion and pulsation artifact and is not well depicted on the 3-D reconstructions. Signed: Sierra Sheridan MDReport Verified Date/Time: 08/24/2020 17:21:43 Addendum EndsFINAL REPORT MRA Head CLINICAL HISTORY: Unlisted Reason for ExamCarotid stenosis TECHNIQUE: MRA of the head utilizing 3-D hgge-hj-vmfjfl technique, with 3-D reconstructions. MRA of the neck utilizing 2-D and 3-D noon-qc-ibxjbl technique, with 3-D reconstructions. COMPARISON: None FINDINGS: Head:There is no evidence of intracranial aneurysm. No major branchvessel occlusion or high-grade focal stenosis. Neck:The carotid arteries in the neck are patent including their bifurcations. There is antegrade flow in the vertebral arteries in the neck. IMPRESSION:No proximal branch arterial occlusion or high-grade focal stenosis within the head and neck. Signed: Sierra Sheridan Verified Date/Time: 08/22/2020 17:31:18 MR, MRA, BRAIN, [id number] 17:21:00Intracranial extracranial \T\ arch w/w/o contrast Unlisted Reason for Exam - Click Yes and Enter Reason Below->Yes Unlisted Reason for Exam->Carotid stenosis Anesthesia:->None [facility] 1955 Sex: MAddendum BeginsREPORT STATUS:A Upon additional review, there is stenosis of the right internal carotid artery at turning point distal to the bifurcation, at least 70% using NASCET-like criteria. This is in an area obscured by motion and pulsation artifact and is not well depicted on the 3-D reconstructions. Signed: Sierra Sheridan Verified Date/Time: 08/24/2020 17:21:43 Addendum EndsFINAL REPORT MRA Head CLINICAL HISTORY: Unlisted Reason for ExamCarotid stenosis TECHNIQUE: MRA of the head utilizing 3-D euwl-xy-ytknkd technique, with 3-D reconstructions. MRA of the neck utilizing 2-D and 3-D nubv-lk-pktseh technique, with 3-D reconstructions. COMPARISON: None FINDINGS: Head:There is no evidence of intracranial aneurysm. No major branchvessel occlusion or high-grade focal stenosis. Neck:The carotid arteries in the neck are patent including their bifurcations. There is antegrade flow in the vertebral arteries in the neck. IMPRESSION:No proximal branch arterial occlusion or high-grade focal stenosis within the head and neck. Signed: Sierra Sheridan Verified Date/Time: 08/22/2020 17:31:18 POC ACTIVATED CLOTTING [id number] 17:08:00 Test Item Value Reference Range Interpretation Comments Activated Clotting Time 147 sec : 74 -137 seconds, (test code = 441) Baseline: TESTED AT [address], [address]: Communications Department Head/Techni betsey ID = [id number] for BA TTAD, RICHA [facility] CenterPOCT-[id number] 17:08:00 Test Item Value Reference Range Interpretation Comments ACTIVATED CLOTTING TIME 147 sec : 74 -137 seconds, (BEAKER) (test code = Baseli ne: TESTED AT 441) [facility] 6720 [facility], [address]: Communications Department Head/Techni betsey ID = [id number] for BA TTAD, RICHA Platelet Aggregation: Function [id number] 16:29:00 Test Item Value Reference Range Interpretation Comments Pathologist: (test Tate Parada M.D. code = 2622) (electonic signature) Platelets (test code = 188 150- 450 K/CU MM 2656) ADP (test code = 23 % 62-100 L 95666-7) Platelet Rich Plasma 217 200- 300 k/cu mm (test code = 2134) Plt. Function Screen Pattern of Interpretation (test disaggregation present code = 4655) with ADP which may be characteristic of P2Y12 inhibitor effect. Correlation with medication history is required. ALICIA (test code = ALICIA) Platelet Function Screen results may be falsely low with platelet counts<75,000/cu mm.Communications Department Head ID - [id number] Lab Interpretation Abnormal (test code = 84602-1) [facility] CenterPLATELET AGGREGATION: FUNCTION [id number] 16:29:00 Test Item Value Reference Range Interpretation Comments [id number] Tate Karma, M.D. (BEAKER) (test code = (electonic signature) 2622) PLATELET COUNT AGG 188 K/CU MM 150-450 (BEAKER) (test code = 2656) ADP (BEAKER) (test code 23 % 62-100 L = 4654) PLATELET RICH 217 k/cu mm 200-300 PLASMA(BEAKER) (test code = 2134) PLATELET FUNCTION Pattern of SCREEN INTERPRETATION disaggregation present (BEAKER) (test code = with ADP which may be 4655) characteristic of P2Y12 inhibitor effect. Correlation with medication history is required. Platelet Function Screen results may be falsely low with platelet counts<75,000/cu mm.Communications Department Head ID- [id number]-[id number] 16:10:00 Test Item Value Reference Range Interpretation Comments ACTIVATED CLOTTING TIME 169 sec : 74 -137 seconds, (BEAKER) (test code = Baseli ne: TESTED AT 441) [address], [facility] 30: Communications Department Head/Techni betsey ID = [id number] for BLANQUITA LAIRD [id number] 14:05:00 Test Item Value Reference Range Interpretation Comments ACTIVATED CLOTTING TIME 274 sec : 74 -137 seconds, (BEAKER) (test code = Baseli ne: TESTED AT 441) [address], [facility] 30: Communications Department Head/Techni betsey ID = [id number] for ZA DNIK, VENKAT [id number] 13:39:00 Test Item Value Reference Range Interpretation Comments ACTIVATED CLOTTING TIME 241 sec : 74 -137 seconds, (BEAKER) (test code = Baseli ne: TESTED AT 441) [address], [facility] 30: Communications Department Head/Techni betsey ID = [id number] for ZA DNIK, VENKAT [id number] 13:26:00 Test Item Value Reference Range Interpretation Comments ACTIVATED CLOTTING TIME 263 sec : 74 -137 seconds, (BEAKER) (test code = Baseli ne: TESTED AT 441) [address], [facility] 30: Communications Department Head/Techni betsey ID = [id number] for ZA DNIK, VENKAT SARS-CoV2/RT-PCR (Asymptomatic ONLY)2020-08-22 22:08:00 Test Item Value Reference Range Interpretation Comments SARS-COV2/RT-PCR Negative Not Detected, (test code = Negative, See 33878-5) external report for linked test SARS-COV-2 [facility] PERFORMING LAB (test code = 89914-7) ALICIA (test code = Negative result for this ALICIA) test determines that SARS-CoV-2 RNA was not present in the [...] of the Act. Fact Sheet for Healthcare Providers:https://www.Acceptd idel.BloomBoard/sites/default/f garcia/product/documents/F act_Sheet_HC_Providers_L mqy_LJMW-FxI-7.pdf Fact Sheet for Healthcare Patients:https://www.jany del.com/sites/default/fi les/product/documents/Fa ct_Sheet_Patients_Lyra_S ARS-CoV-2.pdf Performing Laboratory:[facility], [place] [id number] [place], [place] [address]ARS-COV2/RT-PCR ([facility])2020-08-22 22:08:00 Test Item Value Reference Range Interpretation Comments SARS-COV2/RT-PCR (test Negative Not Detected, Negative, code = 5037099) See external report for linked test SARS-COV-2 PERFORMING LAB [facility] (test code = 0149223) Negative result for this test determines that SARS-CoV-2 RNA was not present in the specimen above the Limit of Detection (LOD). However, Negative results do not preclude SARS-CoV-2 infection and should not be used as the sole basis for treatment or patient management decisions. Negative results mustbe combined with clinical observations, patient history, and epidemiological information. A false negative result may occur if a specimen is improperly collected, transported or handled. A false negative result should be considered if patient's recent exposures or clinical presentation indicate that COVID-19 (SARS-CoV-2) is likely and diagnostic tests for other causes of illness are negative. Re-testing should be considered in cases of suspected false negatives.The limit of detection for this assay is 800 copies/mL.This SARS CoV-2 test is a real-time RT-PCR test intended for the qualitative detection of nucleic acid from SARS-CoV-2 in a nasopharyngeal swab specimen collected from individuals susp ected of COVID-19 by their healthcare provider.This test has not been Food and Drug [...] is revoked under Section 564(g) of the Act.Fact Sheet for Healthcare Providers:https://www.Radiation Watch.BloomBoard/sites/default/files/product/documents/Fact_Shee c_KI_Mpqakhywd_Zcjw_PWZP-CkE-3.pdfFact Sheet for Healthcare Patients:https://www.Radiation Watch.com/sites/default/files/product/ documents/Bywq_Qyqcx_Itxhifdu_Mjnk_NTOG-CqI-0.pdfPerforming Laboratory:[facility], [place] [address]WNT head with and without [id number] 17:31:00Interface, External Ris In - 08/24/2020 5:23 PM CDTAddendum BeginsREPORT STATUS:A Upon additional review, there is stenosis of the right internal carotid artery at turning point distal to the bifurcation, at least 70% using NASCET-like criteria. This is in an area obscured by motion and pulsation artifact and is not well depicted on the 3-D reconstructions. Signed: Sierra Sheridan Verified Date/Time: 08/24/2020 17:21:43 Addendum EndsFINAL REPORT MRA Head CLINICAL HISTORY: Unlisted Reason for ExamCarotid stenosis TECHNIQUE: MRA of the head utilizing 3-D wvkj-xc-kpojfn technique, with 3-D reconstructions. MRA of the neck utilizing 2-D and 3-D syia-zl-vznyvi technique, with 3-D reconstructions. COMPARISON: None FINDINGS: Head:There is no evidence of intracranial aneurysm. No major branch vessel occlusion or high-grade focal stenosis. Neck:Thecarotid arteries in the neck are patent including their bifurcations. There is antegrade flow in the vertebral arteries in the neck. IMPRESSION:No proximal branch arterial occlusion or high-grade focal stenosis within the head and neck. Signed: Sierra Sheridan Verified Date/Time: 08/22/2020 17:31:18 [facility] CenterM[facility] without & with IV [id number] 17:31:00Interface, External Ris In - 08/24/2020 5:23 PM CDTAddendum BeginsREPORT STATUS:A Upon additional review, there is stenosis of the right internal carotid artery at turning pointdistal to the bifurcation, at least 70% using NASCET-like criteria. This is in an area obscured by motion and pulsation artifact and is not well depicted on the 3-D reconstructions. Signed: Meservy, Sierra MDReport Verified Date/Time: 08/24/2020 17:21:43 Addendum EndsFINAL REPORT MRA Head CLINICAL HISTORY: Unlisted Reason for ExamCarotid stenosis TECHNIQUE: MRA of the head utilizing 3-D yzcl-ky-zqpiqq technique, with 3-D reconstructions. MRA of the neck utilizing 2-D and 3-D tmis-ck-wtskpc technique, with 3-D reconstructions. COMPARISON: None FINDINGS: Head:There is no evidence of intracranial aneurysm. No major branch vessel occlusion or high-grade focal stenosis. Neck:Thecarotid arteries in the neck are patent including their bifurcations. There is antegrade flow in the vertebral arteries in the neck. IMPRESSION:No proximal branch arterial occlusion or high-grade focal stenosis within the head and neck. Signed: Sierra Sheridan Verified Date/Time: 08/22/2020 17:31:18 [facility] CenterCreatinine2020-10-19 13:42:00 Test Item Value Reference Range Interpretation Comments Creatinine (test 0.91 mg/dL 0.57-1.25 Specimen sl ightly code = 2160-0) hemolyzed EGFR (test code = 84 mL/min/1.73 [place] [address]-6) NOT ACCURATE CREATININE CLEARANCE IN PREDICTING GLOMERULAR FILTRATION RATE . ESTIMATED GFR I S NOT APPLICABLE FOR DIALYSIS PATIEN TS. ALICIA (test code = Communications Department Head ID - ALICIA) HERB Abreu [facility] CenterBUN2020-10-19 13:42:00 Test Item Value Reference Range Interpretation Comments BUN (test code = 3094-0) 16 mg/dL 05-24 ALICIA (test code = ALICIA) Communications Department Head ID - HERB Abreu Lab Interpretation (test Normal code = 85262-2) [facility] CenterBUN2020-10-19 13:42:00 Test Item Value Reference Range Interpretation Comments BLOOD UREA NITROGEN (BEAKER) (test 16 mg/dL 05-24 code = 354) Communications Department Head ID - HERB [id number] 13:42:00 Test Item Value Reference Range Interpretation Comments CREATININE (BEAKER) 0.91 mg/dL 0.57-1.25 Specimen slightly (test code = 358) hemolyzed EGFR (BEAKER) (test 84 mL/min/1.73 ESTIMA DEBORAH GFR IS code = 1092) sq m NOT ACCURATE CREATININE CLEARANCE IN PREDICTING GLOMERULAR FILTRATION RATE . ESTIMATED GFR I S NOT APPLICABLE FOR DIALYSIS PATIEN TS. Communications Department Head ID - HERB Abreu
--- NOTE | 2020-08-27 16:58 | EDPHYS ---
Physician Documentation [facility] Name: Augie Brito Age: 65 yrs Sex: Male : 1955 Arrival Date: 08/27/2020 Time: 15:48 Bed 7 Private MD: Tyshawn Herrmann V ED Physician Tyrese Maldonado HPI: 08/27 16:14 This 65 yrs old Male presents to ER via Wheelchair with complaints of rn Confusion, Numbness Of Arm. 16:14 The patient presents with confusion, left arm feels heavy. Onset: The symptoms/episode rn began/occurred 3 day(s) ago. Possible causes: unknown. Current symptoms: In the emergency department the patient's symptoms are unchanged from the initial presentation. The patient has not experienced similar symptoms in the past. The patient has been recently seen by a physician:. Reports recently admitted to [facility] in [place] had carotid surgery, after surgery noted to have confusion and left arm tingling/coordination problem, had CT head and EEG, and discharged yesterday. reports still confused at times, intermittent, and left arm feels heavy. Patient reports difficulty with simple tasks. . Historical: - Allergies: 15:53 No Known Allergies; sv - Home Meds: 16:06 levothyroxine 125 mcg tab 1 tab once daily [Active]; olmesartan oral 40 mg daily oral sv [Active]; metformin 1,000 mg Oral tab 1 tab 2 times per day [Active]; atorvastatin 40 mg oral tab 1 tab once daily [Active]; testosterone topical gel 1.62% 1 pump every other day [Active]; clopidogrel 75 mg oral tab 1 tab once daily [Active]; aspirin 81 mg Oral chew 1 tab once daily [Active]; Fish Oil oral 2 gel pills daily oral [Active]; Vitamin D3 5,000 unit oral tab daily [Active]; vitamin E 400 unit Oral cap every other day [Active]; quercetin with bromelain 180/165 mg BID [Active]; Liposomal Vitamin C 1600 mg BID [Active]; K2 100 mg daily [Active]; - PMHx: 15:53 Thyroid problem; High Cholesterol; Diabetes - NIDDM; sv - PSHx: 15:53 right carotid surgery; sv - Family history:: not pertinent. - Hospitalizations: : Patient was recently seen at [facility]. ROS: 16:14 Constitutional: Negative for fever, chills, and weight loss, Eyes: Negative for injury, rn pain, redness, and discharge, Neck: Negative for injury, pain, and swelling, Cardiovascular: Negative for chest pain, palpitations, and edema, Respiratory: Negative for shortness of breath, cough, wheezing, and pleuritic chest pain, Abdomen/GI: Negative for abdominal pain, nausea, vomiting, diarrhea, and constipation, MS/Extremity: Negative for injury and deformity, Skin: Negative for injury, rash, and discoloration, Neuro: Negative for headache, and seizure. Exam: 16:14 Constitutional: This is a well developed, well nourished patient who is awake, alert, rn and in no acute distress. Head/Face: Normocephalic, atraumatic. ENT: MMM Cardiovascular: Regular rate and rhythm. No pulse deficits. Respiratory: Speaking full sentences. No increased work of breathing, no retractions or nasal flaring. Abdomen/GI: soft, non-tender MS/ Extremity: Pulses equal, no cyanosis. Neuro: Awake and alert, GCS 15, oriented to person, place, time, and situation. Cranial nerves II-XII grossly intact. Motor strength 5/5 in all extremities. decreased sensation to soft touch and pain LUE, more pronounced proximally. Gait seems a little abnormal, is holding him as he walks, and patient seems confused, even when going to bathroom keeps trying to walk into wrong rooms needing 's assistance and redirection. Vital Signs: 15:54 BP 150 / 97; Pulse 69; Resp 20; Temp 98.9; Pulse Ox 99% ; Weight 105.69 kg; Height 5 sv ft. 10 in. (177.80 cm); 15:54 Body Mass Index 33.43 (105.69 kg, 177.80 cm) sv MDM: 15:57 Patient medically screened. rn 16:14 ED course: Consulted with Dr. Ríos at [facility], he would like patient rn transferred to [place] for MRI. Reports already had ct and EEG that were negative but close after onset, now that is having left arm symptoms needs MRI. Reports he is going to call and facilitate transfer and does not want any tests done prior to transfer. . 17:17 Differential Diagnosis: CVA, electrolyte abnormality, volume depletion. Data reviewed: rn vital signs, nurses notes. ED course: [facility] unable to take patient as ER to ER transfer, Dr. Ríos does not want him to be admitted, wants MRI and then to decide, spoke about this with patient and , they choose to leave and drive directly to [facility]. 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 . Administered Medications: No medications were administered Disposition: 08/27/20 17:20 Discharged to Home. Impression: Altered mental status, unspecified, Paresthesia of skin. - Condition is Stable. - Discharge Instructions: Confusion, Paresthesia. - Medication Reconciliation Form, Thank You Letter, Antibiotic Education, Prescription Opioid Use form. - Follow up: Private Physician; When: Upon discharge from the Emergency Department; Reason: Recheck today's complaints, Re-evaluation by your physician. - Problem is new. - Symptoms are unchanged. Signatures: Shena Villanueva RN RN sv Tyrese Maldonaod MD MD wire harness assembler: (The following items were deleted from the chart) 17:17 16:57 08/27/2020 16:57 Transfer ordered to [facility]. rn Diagnosis is Altered mental status, unspecified; Paresthesia of skin. Reason for transfer: Higher level of care. Accepting physician is Dr. Carlos. Condition is Stable. Problem is an ongoing problem. Symptoms are unchanged. rn 17:34 17:20 08/27/2020 17:20 Discharged to Home. Impression: Altered mental status, sv unspecified; Paresthesia of skin. Condition is Stable. Forms are Medication Reconciliation Form, Thank You Letter, Antibiotic Education, Prescription Opioid Use. Follow up: Private Physician; When: Upon discharge from the Emergency Department; Reason: Recheck today's complaints, Re-evaluation by your physician. Problem is new. Symptoms are unchanged. rn
--- NOTE | 2020-08-27 16:58 | ER ---
Nurse's Notes [facility] Name: Augie Brito Age: 65 yrs Sex: Male : 1955 Arrival Date: 08/27/2020 Time: 15:48 Bed 7 Private MD: Tyshawn Herrmann V Diagnosis: Altered mental status, unspecified;Paresthesia of skin Presentation: 08/27 15:51 Chief complaint: Patient states: right carotid stent placed on Sat and was confused sv after the surgery. EEG was done at the hospital and it showed it was slow. His MD told him to come the ER to get an MRI. Pt reports that if he is sitting down his left arm goes numb and he is still confused. Surgery was done at [facility]. Coronavirus screen: Client denies travel out of the [place] in the last 14 days. At this time, the client does not indicate any symptoms associated with coronavirus-19. Ebola Screen: No symptoms or risks identified at this time. Risk Assessment: Do you want to hurt yourself or someone else? Patient reports no desire to harm self or others. Onset of symptoms was August 24, 2020. 15:51 Method Of Arrival: Wheelchair sv 15:51 Acuity: BRANDAN 2 sv 15:54 Initial Sepsis Screen: Does the patient meet any 2 criteria? No. Patient's initial sv sepsis screen is negative. Does the patient have a suspected source of infection? No. Patient's initial sepsis screen is negative. Historical: - Allergies: 15:53 No Known Allergies; sv - Home Meds: 16:06 levothyroxine 125 mcg tab 1 tab once daily [Active]; olmesartan oral 40 mg daily oral sv [Active]; metformin 1,000 mg Oral tab 1 tab 2 times per day [Active]; atorvastatin 40 mg oral tab 1 tab once daily [Active]; testosterone topical gel 1.62% 1 pump every other day [Active]; clopidogrel 75 mg oral tab 1 tab once daily [Active]; aspirin 81 mg Oral chew 1 tab once daily [Active]; Fish Oil oral 2 gel pills daily oral [Active]; Vitamin D3 5,000 unit oral tab daily [Active]; vitamin E 400 unit Oral cap every other day [Active]; quercetin with bromelain 180/165 mg BID [Active]; Liposomal Vitamin C 1600 mg BID [Active]; K2 100 mg daily [Active]; - PMHx: 15:53 Thyroid problem; High Cholesterol; Diabetes - NIDDM; sv - PSHx: 15:53 right carotid surgery; sv - Family history:: not pertinent. - Hospitalizations: : Patient was recently seen at [facility]. Vital Signs: 15:54 BP 150 / 97; Pulse 69; Resp 20; Temp 98.9; Pulse Ox 99% ; Weight 105.69 kg; Height 5 sv ft. 10 in. (177.80 cm); 15:54 Body Mass Index 33.43 (105.69 kg, 177.80 cm) sv ED Course: 15:48 Patient arrived in ED. mr 15:49 Tyshawn Herrmann MD is Private Physician. mr 15:53 Triage completed. sv 15:54 Arm band placed on. sv 15:57 Tyrese Maldonado MD is Attending Physician. rn 16:53 initiated a transfer with Karen Joe from the [facility]. eb Administered Medications: No medications were administered Outcome: 16:57 ER care complete, transfer ordered by MD. rn 17:20 Discharge ordered by MD. rn 17:34 Patient left the ED. sv Signatures: Shena Villanueva RN Mayela Bradley mr Tyrese Maldonado MD MD rn Botello, Elizabeth eb Corrections: (The following items were deleted from the chart) 15:55 15:51 Chief complaint: Patient states: right carotid stent placed on Wed and was sv confused after the surgery. EEG was done at the hospital and it showed it was slow. His MD told him to come the ER to get an MRI. Pt reports that if he is sitting down his left arm goes numb and he is still confused. sv 15:56 15:54 Pulse 69bpm; Resp 20bpm; Pulse Ox 99%; Temp 98.9F; 105.69 kg; Height 5 ft. 10 sv in.; BMI: 33.4; sv 15:59 15:51 Chief complaint: Patient states: right carotid stent placed on Wed and was sv confused after the surgery. EEG was done at the hospital and it showed it was slow. His MD told him to come the ER to get an MRI. Pt reports that if he is sitting down his left arm goes numb and he is still confused. Surgery was done at [facility]. sv
[2020-08-27 17:39] VITALS: BP 150/97; TEMP 98.9; O2SAT 99
== END 2020-08-27 17:34 | disposition home or self-care (01) ==
LOC: ER 15:45
DX: R20.2 Paresthesia of skin (principal); E78.00 Pure hypercholesterolemia, unspecified; E11.9 Type 2 diabetes mellitus without complications; E07.9 Disorder of thyroid, unspecified; Z79.82 Long term (current) use of aspirin
CPT/HCPCS: 99281